=== PATIENT | female | born 1970 | race Caucasian/White ===

== ENCOUNTER 2025-05-23 09:34 | Outpatient (REF) | payer OTHER, SELFPAY ==
--- OUTSIDE RECORDS SUMMARY | 2025-05-23 08:45 | XMS_ITS | Encounter Summary ---
Author Organization [employer] Address [address] [facility] [address], [place] [address] Care Team Providers Care Rv Servicer Name Role Phone Sherman Crytsal MD Primary Care Prov ider Reason for Referral * Consultation (Routine) - Pending Review Specialty Diagnoses / Procedures Referred By Yuan hong Referred To Contact General Surgery Diagnoses Lipoma of torso Sherman Crystal MD [address] [place] [address] Phone: tel: fax: Referral ID Status Reason Start Date Expiration Date Visits Requested Visits Authorized [id number] Pending Review Specialty Services Required 05/23/2025 05/23/2026 1 1 Encounter Details Date Type Department Care Team (Late st Contact Info) Description 05/23/2025 8:45 AM EDT Office Visit [facility] [address] [place] [address] Sherman Crystal MD [address] [place] [address] Primary hypertension (Primary Dx); Lipoma of torso; Acute midline low back pain without sciatica Social History Tobacco Use Types Packs/Day Years Used Date Smoking Tobacco: Never Smokeless Tobacco: Never Alcohol Use Standard Drinks/Week Comments Yes 0 (1 standard drink = 0.6 oz pur e alcohol) social whiskey Depression Answer Date Recorded Patient Health Questionnaire-9 Score 0 11/02/2024 Patient Health Questionnaire-9 Score 0 11/02/2024 Last PHQ-9: Questionnaire Data Not on file 1 01/03/2024 Housing Stability Answer Date Recorded What is your housing situation today? I have beto jimenez 05/23/[address] you li ve. Do you have problems with any of the following? None of the above 05/23/2025 Food Insecurity Answer Date Recorded Within the past 12 months, y ou worried that your food would run out before you got money to buy more: Never True 05/23/2025 Within the past 12 months,th e food you bought just didn't last and you didn't have enough money to get more: Never True 07/2025 Transportation Answer Date Recorded In the past 12 months, has l ack of transportation kept you from medical appts, meetings, work or from getting things needed for daily living? No 05/23/2025 Utilities Answer Date Recorded In the past 12 months, has t he electric, gas, oil or water company threatened to shut off services in your home? No 05/23/2025 Depression Answer Date Recorded Patient Health Questionnaire-2 Score 0 11/02/2024 Internet Access Answer Date Recorded Internet Access Q1 Yes 05/23/2025 Internet Access Q2 Not on file 05/23/2025 Comments Unknown Sex and Gender Information Value Date Recorded Sex Assigned at Female 11/02/2024 9:34 AM EST Legal Sex Female 3:29 PM EST Gender Identity Female 11/02/2024 9:34 AM EST Sexual Orientation Don't know 11/02/2024 9: 34 AM EST documented as of this encounter Last Filed Vital Signs Vital Sign Reading Time Taken Comments Blood Pressure 144/98 05/23/2025 8:53 AM EDT Pulse 72 05/23/2025 8:53 AM EDT Temperature 36.8 C (98.3 F) 05/23/2025 8:53 AM EDT Respiratory Rate 16 05/23/2025 8:53 AM EDT Oxygen Saturation - - Inhaled Oxygen Concentration - - Weight 63.1 kg (139 lb 3.2 oz) 05/23/2025 8:53 A M EDT Height 150.5 cm (4' 11.25 ) 05/23/2025 8:53 AM E DT Body Mass Index 27.88 05/23/2025 8:53 AM EDT documented in this encounter Progress Notes * Sherman Campos MD - 05/23/2025 8:45 AM EDT Subjective Patient ID: Abi Mancuso is a 54 y.o. female who presents for No chief complaint on file.. Hypertension This is a chronic problem. The problem is uncontrolled. Pertinent negatives include no chest pain, headaches, palpitations, peripheral edema or shortness of breath. Review of Systems Respiratory: Negative for shortness of breath. Cardiovascular: Negative for chest pain and palpitations. Neurological: Negative for headaches. Objective Physical Exam Constitutional: Appearance: Normal appearance. Cardiovascular: Rate and Rhythm: Normal rate and regular rhythm. Heart sounds: No murmur heard. Pulmonary: Effort: Pulmonary effort is normal. No respiratory distress. Breath sounds: No stridor. No wheezing or rhonchi. Abdominal: General: Abdomen is flat. There is no distension. Palpations: There is no mass. Tenderness: There is no abdominal tenderness. Hernia: No hernia is present. Neurological: General: No focal deficit present. Mental Status: She is alert and oriented to person, place, and time. Psychiatric: Mood and Affect: Mood normal. Behavior: Behavior normal. Assessment/Plan Problem List Items Addressed This Visit Primary hypertension - Primary Not at target but she is not taking amlodipine 5mg, told to take both hydrochlorothiazide and amlodipine, will follow up in 1 month Relevant Medications amLODIPine (Norvasc) 5 MG tablet hydroCHLOROthiazide (HYDRODiuril) 25 MG tablet Other Relevant Orders CBC auto differential Comprehensive Metabolic Panel Lipid Panel, Standard Hemoglobin A1c TSH W/Reflex to FT4 HIV-1/2 Antigen and Antibodies, Fourth Generation, with Reflexes Hepatitis C Antibody with Reflex to HCV, RNA, Quantitative, Real-Time PCR Lipoma of torso Will refer to surgery for removal Relevant Orders Referral to General Surgery Acute midline low back pain without sciatica No trauma, no neurologic deficit, pain does not radiate, will start on ibuprofen, discussed home remedies, avoid heavy lifting, rest, call back if worsening Relevant Medications ibuprofen 800 MG tablet documented in this encounter Miscellaneous Notes * Assessment & Plan Note - Sherman Campos MD - 05/23/2025 9:15 AM EDTAssociated Problem(s): Acute midline low back pain without sciatica No trauma, no neurologic deficit, pain does not radiate, will start on ibuprofen, discussed home remedies, avoid heavy lifting, rest, call back if worsening * Assessment & Plan Note - Sherman Campos MD - 05/23/2025 9:11 AM EDTAssociated Problem(s): Lipoma of torso Will refer to surgery for removal * Assessment & Plan Note - Sherman Campos MD - 05/23/2025 9:10 AM EDTAssociated Problem(s): Primary hypertension Not at target but she is not taking amlodipine 5mg, told to take both hydrochlorothiazide and amlodipine, will follow up in 1 month documented in this encounter Plan of Treatment Upcoming Encounters Date Type Department Care Team (Late st Contact Info) Description 06/25/2025 3:15 PM EDT Telemedicine [facility] [address] [place] [address] Sherman Crystal MD [address] [place] [address] Scheduled Orders Name Type Priority Associated Diagnoses Orde r Schedule CBC auto differential Lab Routine Primary hypertension Expected: 05/23/2025 (Approximate), Expires: 05/23/2026 Comprehensive Metabolic Panel Lab Routine Primary hypertension Expected: 05/23/2025 (Approximate), Expires: 05/23/2026 Lipid Panel, Standard Lab Routine Primary hypertension Expected: 05/23/2025 (Approximate), Expires: 05/23/2026 Hemoglobin A1c Lab Routine Primary hypertension Expected: 05/23/2025 (Approximate), Expires: 05/23/2026 TSH W/Reflex to FT4 Lab Routine Primary hypertension Expected: 05/23/2025 (Approximate), Expires: 05/23/2026 HIV-1/2 Antigen and Antibodies, Fourth Generation, with Reflexes Lab Routine Primary hypertension Expected: 05/23/2025 (Approximate), Expires: 05/23/2026 Hepatitis C Antibody with Reflex to HCV, RNA, Quantitative, Real-Time PCR Lab Routine Primary hypertension Expected: 05/23/2025, Expires: 05/23/2026 Scheduled Referrals Name Type Priority Associated Diagnoses Orde r Schedule Referral to General Surgery Outpatient Referral Routine Lipoma of torso Expected: 05/23/2025 (Approximate), Expires: 05/23/2026 documented as of this encounter Visit Diagnoses Diagnosis Primary hypertension- Primary Unspecified essential hypertension Lipoma of torso Acute midline low back pain without sciatica documented in this encounter Additional Health Concerns Assessment Noted Time PHQ-9 Depression Total Score: 0 11/02/20 10:16 AM EST documented as of this encounter Care Teams Rv Servicer Relationship Specialty Start Date End Date Sherman Crystal MD [address] [place] [id number] PCP - General Internal Medicine 11/02/24 documented as of this encounter
--- OUTSIDE RECORDS SUMMARY | 2025-05-23 10:11 | XMS_ITS | Clinical Summary ---
Author Organization [facility] Address [address] [place] [phone] Phone Care Team Providers Care Industrial Psychology Professor Name Role Phone Physician, Pcp Unknown Primary Care Provider Mariel vailable Allergies No known active allergies Medications amLODIPine (NORVASC) 5 mg tablet Take 1 tablet (5 mg total) by mouth 1 (one) time each day. 15 tablet 10/21/2024 Active Active Problems No known active problems Social History Tobacco Use Types Packs/Day Years Used Date Smoking Tobacco: Never Smokeless Tobacco: Never Tobacco Cessation:Counseling Given: Not Answered Comments Unknown Sex and Gender Information Value Date Recorded Sex Assigned at Female 10/21/2024 9:16 PM EST Legal Sex Female 4:09 PM EST Gender Identity Female 10/21/2024 9:16 PM EST Sexual Orientation Straight 10/21/2024 9: 16 PM EST Obstetrics History Last Filed Vital Signs Vital Sign Reading Time Taken Comments Blood Pressure 139/83 10/21/2024 10:58 PM EST Pulse 75 10/21/2024 10:58 PM EST Temperature 37 C (98.6 F) 10/21/2024 8:09 PM EST Respiratory Rate 18 10/21/2024 10:58 PM EST Oxygen Saturation 99% 10/21/2024 10:22 PM EST Inhaled Oxygen Concentration - - Weight 62.1 kg (137 lb) 10/21/2024 4:26 PM EST Height 152.4 cm (5') 10/21/2024 4:26 PM EST Body Mass Index 26.76 10/21/2024 4:26 PM EST Plan of Treatment Health Maintenance Due Date Last Done Comments Breast Cancer Screening 1971 DTaP,Tdap,and Td Vaccines (1 - Tdap) 1990 Hepatitis B Vaccines (1 of 3 - 19+ 3-dose series) 1990 Cervical Cancer Screening: P ap Smear 1992 Pneumococcal Vaccine: 50+ Ye ars (1 of 1 - PCV) 2021 Zoster Vaccines (1 of 2) 2021 COVID-19 Vaccine (1 - 2023-2 5 season) 2024 Cholesterol Screening (Lipid Panel) 10/21/2024 Colorectal Cancer Screening: Colonoscopy 10/21/2024 Depression Screening 10/21/2024 HIV Screening 10/21/2024 Hepatitis C Screening 10/21/2024 Social Influencers of Health Screening 10/21/2024 Influenza Vaccine (#1) 2025 Hypertension/CHF/CAD Annual BMP Blood Test 10/21/2025 10/21/2024 HIB Vaccines Aged Out No longer eligi ble based on patient's age to complete this topic HPV Vaccines Aged Out No longer eligi ble based on patient's age to complete this topic Hepatitis A Vaccines Aged Out No long er eligible based on patient's age to complete this topic IPV Vaccines Aged Out No longer eligi ble based on patient's age to complete this topic MMR Vaccines Aged Out No longer eligi ble based on patient's age to complete this topic Meningococcal ACWY Vaccine Aged Out N o longer eligible based on patient's age to complete this topic Meningococcal B Vaccine Aged Out No l onger eligible based on patient's age to complete this topic RSV Immunization Patients Un liv 20 months Aged Out No longer eligible b ased on patient's age to complete this topic Varicella Vaccines Aged Out No longer eligible based on patient's age to complete this topic Procedures Procedure Name Priority Date/Time Associated Diagnosis Comments BASIC METABOLIC PANEL STAT 10/21/2024 4:53 PM EST from Last 3 Months or Most Recently Relevant to Health Maintenance Results * Basic metabolic panel (10/21/2024 4:53 PM EST) Sodium 139 133 - 145 mmol/L LAB CHEMISTRY METHOD 10/21/2024 5:38 PM EST [facility] Potassium 3.8 3.5 - 5.5 mmol/L LAB CHEMISTRY METHOD 10/21/2024 5:38 PM [facility] Chloride 108 96 - 110 mmol/L LAB CHEMISTRY METHOD 10/21/2024 5:38 PM [facility] CO2 27 21 - 32 mmol/L LAB CHEMISTRY METHOD 10/21/2024 5:38 PM [facility] Anion Gap 4 3 - 11 LAB CHEMISTRY METHOD 10/21/2024 5:38 PM [facility] Glucose 95 70 - 100 mg/dL LAB CHEMISTRY METHOD 10/21/2024 5:38 PM [facility] BUN 11 5 - 25 mg/dL LAB CHEMISTRY METHOD 10/21/2024 5:38 PM [facility] Creatinine 0.74 0.50 - 1.10 mg/dL LAB CHEMISTRY METHOD 10/21/2024 5:38 PM [facility] eGFR 97 >=60 mL/min/1. 73m2 LAB CHEMISTRY METHOD 10/21/2024 5:38 PM [facility] Comment:Calculation based on the Chronic Kidney Disease Epidemiology Collaboration (CKD-EPI) equation refit without adjustment for race. BUN/Creatinine Ratio 14.9 LAB CHEMISTRY METHOD 10/21/2024 5:38 PM [facility] Calcium 8.9 8.5 - 10.5 mg/dL LAB CHEMISTRY METHOD 10/21/2024 5:38 PM [facility] Blood Venous blood specimen / Unknown Venipuncture / Unknown 10/21/2024 4:53 PM EST 10/21/2024 5:00 PM EST us Laith Carr DO LAB BLOOD ORDERABLES Final Res ult [facility] [address] [place] [address], [place] [phone] from Last 3 Months or Most Recently Relevant to Health Maintenance Insurance [facility] [employer] Care Teams Industrial Psychology Professor Relationship Specialty Start Date End Date Physician, Pcp Unknown PCP - General 10/21/24
[2025-05-23 16:17] LABS: MANUAL DIFF FLAG NO
[2025-05-23 16:22] LABS: Hematocrit 39.2 % (37.0-47.0); Hemoglobin 12.1 g/dl (12.0-16.0); Imm Gran Abs Auto 0.01 X10*3/uL (0.00-0.03); Imm Gran Pct Auto 0.3 % (0.0-0.4); Lymphocytes Absolute Auto 1.7 X10*3/uL (1.2-4.9); Mean Corpuscular HGB Conc 30.9 g/dl (31.0-35.0); Mean Corpuscular Hemoglobin 25.5 pg (27.0-33.0); Mean Corpuscular Volume 82.5 fL (80.0-98.0); NRBC Abs Auto 0.000 X10*3/uL (0.0-0.012); NRBC Pct Auto 0.0 /100WBC (0.0-0.2); Platelet Count 302 X10*3/uL (160-400); Red Blood Count 4.75 X10*6/uL (4.20-5.50); White Blood Count 3.8 X10*3/uL (4.8-10.8)
[2025-05-23 16:41] LABS: Hemoglobin A1C 134.1478 umol/L; Total Hemoglobin (HGBA1C) 3207.9816 umol/L
[2025-05-23 16:46] LABS: Alanine Aminotransferase 16 U/L (0-31); Albumin Level 4.2 g/dL (3.5-5.0); Alkaline Phosphatase 53 U/L (39-117); Anion Gap 11 (12-20); Aspartate Amino Transferase 31 U/L (5-31); Blood Urea Nitrogen 17 mg/dL (9-16); Calcium 9.0 mg/dL (8.4-10.2); Carbon Dioxide 28 mmol/L (22-29); Chloride 104 mmol/L (96-108); Cholesterol 234 mg/dL (<200); Estimated Glomerular Filt Rate > 60; HDL Cholesterol 51 mg/dL (>40); Potassium 4.2 mmol/L (3.3-5.1); Sodium 139 mmol/L (135-145); Total Protein 7.0 g/dL (6.5-8.0); Triglycerides 114 mg/dL (<150)
[2025-05-24 06:35] LABS: HIV Num 1 0.05 S/CO (0.00-0.99); ~HepC Num1 0.20 S/CO (0.00-0.79); ~Hepatitis C Antibody Nonreactive (Nonreactive)
== END 2025-05-23 09:35 | disposition home or self-care (01) ==
LOC: HO.CHCLDS 09:34
PROVIDERS: Visit Provider Internal Medicine
DX: I10 Essential (primary) hypertension (principal); Z11.4 Encounter for screening for human immunodeficiency virus [HIV]; Z11.59 Encounter for screening for other viral diseases; Z13.1 Encounter for screening for diabetes mellitus
CPT/HCPCS: 36415; 80053; 80061; 83036; 84443; 85025; 86803; 87389

== ENCOUNTER 2025-07-10 10:49 | Outpatient (AMB) | payer OTHER, SELFPAY ==
[2025-07-10 11:05] VITALS: BP 138/91; PULSE 79; BMI 27.1
--- NOTE | 2025-07-10 11:05 | MHC.OFFVIS ---
Vital Signs 07/10/25 11:05 Height 5 ft Weight 139 lb BMI 27.1 BP 138/91 H Blood Pressure Location Rt brachial Position Sitting Pulse 79 Intake Visit Reasons: lipoma~ upper back Intake Note: Patient referred by pcp Dr. Luis Campos for evaluation of lipoma on Rt upper back. Present for 1yr. Patient c/o: growth has been enlarging, becoming bothersome. Medical Receptionist Medical Assistant Required: Yes Information Interpreted: clinical only (Elizabeth # [id number]) Accompanied by: Self / Same As Patient Allergies No Known Allergies Allergy (Verified 07/10/25 11:08) Medication List - Last Reconciled 07/10/25 by Diogo Springer MD No Known Home Meds HPI HPI lipoma~ upper back: Details: 54-year-old female referred for a lipoma of the back. She has had this lump on the upper back on the right side for over 2 years now. She says this has been increasing in size and has been bothering her with pain and discomfort. She wants this removed. She denies any skin changes. She denies any previous trauma to the area. [facility] Medical History (Updated 07/10/25 @ 11:22 by Diogo Springer MD) Lipoma of back HTN (hypertension) delivery affecting Family History Maternal Grandfather Prostate cancer Social History Alcohol intake: current Alcohol intake frequency: holidays/special occasions only Patient Tobacco Use Status: Never used Tobacco Review of Systems Const Denies chills and Denies fever(s) Card Denies chest pain, Denies dyspnea and Denies dyspnea on exertion Resp Denies cough, Denies dyspnea and Denies dyspnea on exertion GI Denies hematochezia and Denies change in bowel habits Denies hematuria Musc Denies back pain and Denies limited range of motion Neuro Denies focal weakness and Denies convulsions Psych Denies depression and Denies mood swings Physical Exam Const General: comfortable and no acute distress Orientation/consciousness: patient oriented x3 Neck Neck: Yes no lymphadenopathy Resp Auscultation: clear to auscultation bilaterally Cardio Rhythm: regular rhythm GI Palpation (GI): Soft to palpation, nontender and no guarding Back/Spine/Pelvis Other: Right upper back with note of a large lipomatous mass, about 7 cm in widest dimension, seems well-defined and mobile Neuro General: patient oriented x3 Assessment & Plan Assessment & Plan (1) Lipoma of back: Code(s): D17.1 - Benign lipomatous neoplasm of skin and subcutaneous tissue of trunk Category: Medical Plan She wants this large lipoma removed. I reviewed with the technique of excision. I explained the risks including but not limited to bleeding, infections and poor healing, as well as the benefits and alternatives. She wants this done under anesthesia in view of the large size. I described her what to expect postoperatively. She has given consent. She will therefore be scheduled for excision of the large lipoma under anesthesia in the operating room. Coding Level of Care Code New Pt Level 3 (02931) Diagnoses Lipoma of back D17.1
--- OUTSIDE RECORDS SUMMARY | 2025-07-10 11:40 | XMS_ITS | Clinical Summary ---
Author Organization [employer] Address [address] [facility] [address] [place] [address] Care Team Providers Care Sole Tacker Name Role Phone Sherman Crystal MD Primary Care Prov ider Allergies No known active allergies Medications Blood Pressure kit 1 kit Once per day. 1 kit 4 Active amLODIPine (Norvasc) 5 MG tablet Take 1 tablet (5 mg) by mouth Once per day. 30 tablet 11 5 05/23/20 26 Active hydroCHLOROthia zide (HYDRODiuril) 25 MG tablet Take 1 tablet (25 mg) by mouth Once per day. 30 tablet 11 5 05/23/20 26 Active ibuprofen 800 MG tablet TAKE 1 TABLET BY MOUTH 3 TIMES DAILY. 90 tablet 5 Active ibuprofen 800 MG tablet Take 1 tablet (800 mg) by mouth 3 times daily. 90 tablet 5 06/20/20 25 Discontinued Active Problems Problem Noted Date Diagnosed Date Lipoma of torso 05/23/2025 Assessment & Plan (05/23/2025 9:11 AM EDT): Will refer to surgery for removal Acute midline low back pain without sciatica 07/2025 Assessment & Plan (05/23/2025 9:15 AM EDT): No trauma, no neurologic deficit, pain does not radiate, will start on ibuprofen, discussed home remedies, avoid heavy lifting, rest, call back if worsening Encounter for medical examination to establish c are 11/02/2024 Assessment & Plan (11/02/2024 11:18 AM EST): No pcp follow up previously ER visit: 10/23/24 due to severe headaches, found with htn started on new treatment (amlodipine) Hospitalziation:- Pmhx: htn Pshx: c sec 200 All:- Med: amlodipine 5mg Works as CARDIOVASCULAR RN Screening for cervical cancer 11/02/2024 Assessment & Plan (11/02/2024 11:18 AM EST): Will schedule for a pap smear Encounter for screening mamm ogram for malignant neoplasm of breast 11/02/2024 Assessment & Plan (11/02/2024 11:22 AM EST): Will order mammogram for screening Screening for colon cancer 11/02/2024 Assessment & Plan (11/02/2024 11:23 AM EST): Will send cologuard, risk vs benefits discussed Primary hypertension 11/02/2024 Assessment & Plan (05/23/2025 9:10 AM EDT): Not at target but she is not taking amlodipine 5mg, told to take both hydrochlorothiazide and amlodipine, will follow up in 1 month Assessment & Plan (11/02/2024 11:24 AM EST): Not at target, will add hydrochlorothiazide 25mg, continue amlodipine 5mg, follow up on next visit in 1 month Encounters Date Type Department Care Team Description 06/25/2025 3:15 PM EDT Telemedicine [facility] [address] [place] [address] Sherman Crystal MD 06/25/2025 Travel 06/19/2025 Refill [facility] [address] [place] [address] Sherman Crystal MD 05/24/2025 Results Follow-Up [facility] [address] [place] [address] Sherman Crystal MD CBC auto differential, Comprehensive Metabolic Panel, Lipid Panel, Standard, Additional followed-up results: 4 05/23/2025 8:45 AM EDT Office Visit [facility] [address] [place] [address] Sherman Crystal MD Primary hypertension (Primary Dx); Lipoma of torso; Acute midline low back pain without sciatica 05/23/2025 Travel 05/15/2025 Patient Outreach [facility] [address] [place] [address] Sherman Crystal MD Pre-visit Planning (Pre visit planning unable to LVM ) from Last 3 Months Family History Medical History Relation Name Comments Hypertension Father Prostate cancer Maternal Grandfather Diabetes Mother Hypertension Mother Prostate cancer Mother's Brother Stomach cancer Mother's Sister Relation Name Status Comments Father Maternal Grandfather Mother Mother's Brother Mother's Sister Social History Tobacco Use Types Packs/Day Years Used Date Smoking Tobacco: Never Smokeless Tobacco: Never Tobacco Cessation:Counseling Given: Not Answered Alcohol Use Standard Drinks/Week Comments Yes 0 (1 standard drink = 0.6 oz pur e alcohol) social coreas Depression Answer Date Recorded Patient Health Questionnaire-9 [...] Don't know 11/02/2024 9: 34 AM EST Last Filed Vital Signs Vital Sign Reading Time Taken Comments Blood Pressure 99/64 06/25/2025 3:33 PM EDT Pulse 72 05/23/2025 8:53 AM EDT Temperature 36.8 C (98.3 F) 05/23/2025 8:53 AM EDT Respiratory Rate 16 05/23/2025 8:53 AM EDT Oxygen Saturation 98% 03/26/2025 3:16 PM EDT Inhaled Oxygen Concentration - - Weight 63.1 kg (139 lb 3.2 oz) 05/23/2025 8:53 A M EDT Height 150.5 cm (4' 11.25 ) 05/23/2025 8:53 AM E DT Body Mass Index 27.88 05/23/2025 8:53 AM EDT Plan of Treatment Upcoming Encounters Date Type Department Care Team (Late st Contact Info) Description 08/14/2025 2:45 PM EDT Telemedicine [facility] [address] [place] [address] Sherman Crystal MD [address] [place], [place] [phone] Health Maintenance Due Date Last Done Comments CT Colonography 1971 Colonoscopy 1971 FIT 1971 FOBT 1971 Sigmoidoscopy 1971 Disability Screening 1971 DTaP/Tdap/Td Vaccines (1 - Tdap) 1990 Hepatitis B Vaccines (1 of 3 - 19+ 3-dose series) 1990 Pap Smear 1992 Cervical Cancer Screening 2001 HPV/Cotest 2001 Pneumococcal Vaccine: 50+ Years (1 of 1 - PCV) 2021 Zoster Vaccines (1 of 2) 2021 COVID-19 Vaccine (1 - 2023-2 5 season) 2024 Influenza Vaccine (#1) 2025 Depression Screening 11/02/2025 11/02/2024, 11/02/2024 Tobacco Screening 11/02/2025 11/02/2024 Alcohol/Substance Use Screening 05/23/2026 05/23/2025 Diabetes: Hemoglobin A1C 05/23/2026 05/23/2025 SDOH Screening 05/23/2026 05/23/2025 Mammogram 06/02/2027 06/02/2025, 06/02/2025 Colorectal Cancer Screening 11/27/2027 FIT DNA/Cologuard 11/27/2027 11/27/2024 Lipid Panel 05/23/2030 05/23/2025 RSV Patients and Patients Aged 60 years or older (1 - 1-dose 75+ series) 2046 HIV Screening Completed 05/23/2025 Hepatitis C Screening Completed 05/23/2025 HIB Vaccines Aged Out No longer eligi [...] patient's age to complete this topic Meningococcal Vaccine Aged Out No laron devika eligible based on patient's age to complete this topic RSV under 20 months Aged Out No longe r eligible based on patient's age to complete this topic Rotavirus Vaccines Aged Out No longer eligible based on patient's age to complete this topic Procedures Procedure Name Priority Date/Time Associated Diagnosis Comments HEPATITIS C AB W/REFL TO HCV RNA, QN, PCR Routine 05/23/2025 9:41 AM EDT Primary hypertension HIV 1/2 ANTIGEN/ANTIBODY, FOURTH GENERATION W/RFL Routine 05/23/2025 9:41 AM EDT Primary hypertension TSH W/REFLEX TO FT4 Routine 05/23/2025 9 :41 AM EDT Primary hypertension HEMOGLOBIN A1C Routine 05/23/2025 9:41 AM EDT Primary hypertension LIPID PANEL, STANDARD Routine 05/23/2025 9:41 AM EDT Primary hypertension COMPREHENSIVE METABOLIC PANEL Routine 05/23/2025 9:41 AM EDT Primary hypertension CBC WITH AUTO DIFFERENTIAL Routine 05/23/2025 9:41 AM EDT Primary hypertension LAB COLOGUARD COLON CANCER SCREEN Routine 11/27/2024 9:48 AM EST Screening for colon cancer from Last 3 Months or Most Recently Relevant to Health Maintenance Results * TSH W/Reflex to FT4 (05/23/2025 9:41 AM EDT) TSH reflex Free T4 2.29 0.32 - 4.0 uIU/mL [facility] Blood Venous blood specimen / Unknown 05/23/2025 9:41 AM EDT 05/23/2025 4:03 PM EDT Sherman Campos MD LAB BLOOD ORDERABL ES Final Result [facility] [address] [place] [phone] * (ABNORMAL) CBC auto differential (05/23/2025 9:41 AM EDT) White Blood Count 3.8(L) 4.8 - 10.8 X10*3/uL [facility] Red Blood Count 4.75 4.20 - 5.50 X10*6/uL [facility] Hemoglobin 12.1 12.0 - 16.0 g/dl [facility] Hematocrit 39.2 37.0 - 47.0 % [facility] Mean Corpuscular Volume 82.5 80.0 - 98.0 fL [facility] Mean Corpuscular Hemoglobin 25.5(L) 27.0 - 33.0 pg [facility] Mean Corpuscular HGB Conc 30.9(L) 31.0 - 35.0 g/dl [facility] Red Cell Distribution Width 14.3 11.0 - 16.0 % [facility] Platelet Count 302 160 - 400 X10*3/uL [facility] Mean Platelet Volume 11.8 9.4 - 12.3 fL [facility] Neutrophils Percent Auto 42.5(L) 45 - 73 % [facility] Imm Gran Pct Auto 0.3 0.0 - 0.4 % [facility] Lymphocytes Percent Auto 43.9(H) 20 - 40 % [facility] Monocytes Percent Auto 9.8 2 - 11 % [facility] Eosinophils Percent Auto 2.4 0 - 4 % [facility] Basophils Percent Auto 1.1 0 - 2 % [facility] NRBC Pct Auto 0.0 0.0 - 0.2 /100WBC [facility] Neutrophils Absolute Auto 1.6(L) 2.0 - 8.3 x10*3/uL [facility] Imm Gran Abs Auto 0.01 0.00 - 0.03 X10*3/uL [facility] Lymphocytes Absolute Auto 1.7 1.2 - 4.9 X10*3/uL [facility] Monocytes Absolute Auto 0.4 0.1 - 1.2 X10*3/uL [facility] Eosinophils Absolute Auto 0.1 0.0 - 0.4 X10*3/uL [facility] Basophils Absolute Auto 0.0 0.0 - 0.2 X10*3/uL [facility] NRBC Abs Auto 0.000 0.0 - 0.012 X10*3/uL [facility] Blood Venous blood specimen / Unknown 05/23/2025 9:41 AM EDT 05/23/2025 4:03 PM EDT us Sherman Campos MD LAB BLOOD ORDERABL ES Final Result [facility] [address] [place] [phone] * Hepatitis C Antibody with Reflex to HCV, RNA, Quantitative, Real-Time PCR (05/23/2025 9:41 AM EDT) Hepatitis C Antibody Nonreactive Nonreactive [facility] Comment:Antibodies to HCV no t detected; does not exclude early acuteHCV infection. Blood Venous blood specimen / Unknown 05/23/2025 9:41 AM EDT 05/23/2025 4:03 PM EDT us Sherman Campos MD LAB BLOOD ORDERABL ES Final Result Performing Organization Address [facility] de Phone Number [facility] [address] [place] [phone] * HIV-1/2 Antigen and Antibodies, Fourth Generation, with Reflexes (05/23/2025 9:41 AM EDT) Pathologist [facility] HIV AB/AG Nonreactive Nonreactive [facility] Comment:HIV-1 p24 Ag and/or HIV-1/HIV-2 Ab not detected.A test result that is nonreactive does not exclude thepossibility of exposure to or infection with HIV-1 and/orHIV-2. Nonreactive results in this assay for individualswith prior exposure to HIV-1 and/or HIV-2 may be due toantigen and antibody levels that are below the limit ofdetection of this assay.The [employer] HIV Ag/Ab Combo assay result andsupplemental assay results should be interpreted inconjunction with the patient's clinical presentation,history and other laboratory results. If the results areinconsistent with clinical evidence, additional testing issuggested to confirm the result. Blood Venous blood specimen / Unknown 05/23/2025 9:41 AM EDT 05/23/2025 4:03 PM EDT us Sherman Campos MD LAB BLOOD ORDERABL ES Final Result Performing Organization Address [facility]/ZIP Co de Phone Number [facility] [address] [place] [phone] * Hemoglobin A1c (05/23/2025 9:41 AM EDT) Hemoglobin A1c 6.0 <6.0 % [facility] Comment:Hemoglobin A1C Refer ence Range Adults: 4.8 - 6.0 % Non diabetic: < 6.0 % Goal: < 7.0 %Additional Action Suggested: > 8.0 %Note: Hemoglobin A1c results are invalid for patients with abnormal amounts of HbF. Blood transfusions may impact the HbA1c concentration in the patient sample. Estimated Average Glucose 126 mg/dL [facility] Comment:eAG = Estimated ave rage glucose which is %A1C expressed asaverage glucose, using the formula of the A9S-IjeigymIravyxd Glucose study (ADAG), Diabetes Care, Vol.31,#8,Jun. 2007 Blood Venous blood specimen / Unknown 05/23/2025 9:41 AM EDT 05/23/2025 4:03 PM EDT Sherman Campos MD LAB BLOOD ORDERABL ES Final Result Performing Organization Address [facility] Co de Phone Number [facility] [address] [place] [phone] * (ABNORMAL) Lipid Panel, Standard (05/23/2025 9:41 AM EDT) Triglycerides 114 <150 mg/dL [facility] Comment:Desirable Triglyceri de: less than 150 mg/dLBorderline High Triglyceride 150-199 mg/dLHigh Triglyceride: 200-499 mg/dLVery High Triglyceride: greater than or equal to 5OO mg/dL Cholesterol 234(H) <200 mg/dL [facility] Comment:Desirable Cholestero l: less than 200 mg/dLBorderline High Cholesterol: 200-239 mg/dLHigh Cholesterol: greater than 239 mg/dL LDL Cholesterol Calculated 161(H) <100 mg/dL [facility] Comment:Desirable LDL: less than 100 mg/dLNear Optimal/Above Optimal LDL: 110- 129 mg/dLBorderline High LDL: 130-159 mg/dLHigh LDL: 160-189 mg/dLVery High LDL: greater than or equal to 190 mg/dL HDL Cholesterol 51 >40 mg/dL [facility] Comment:Desirable HDL: great er than 40 mg/dL Note: This HDL assay may give artificially low results in patients with liver disease. Blood Venous blood specimen / Unknown 05/23/2025 9:41 AM EDT 05/23/2025 4:03 PM EDT us Sherman Campos MD LAB BLOOD ORDERABL ES Final Result [facility] [address] [place] [phone] * (ABNORMAL) Comprehensive Metabolic Panel (05/23/2025 9:41 AM EDT) Sodium 139 135 - 145 mmol/L [facility] Potassium 4.2 3.3 - 5.1 mmol/L [facility] Chloride 104 96 - 108 mmol/L [facility] Carbon Dioxide 28 22 - 29 mmol/L [facility] Anion Gap 11(L) 12 - 20 [facility] Urea Nitrogen (BUN) 17(H) 9 - 16 mg/dL [facility] Creatinine, Serum 0.85 0.5 - 1.4 mg/dL [facility] Estimated Glomerular Filt Rate >60 [facility] Comment:Chronic Kidney Disea se: Estimated GFR < 60 mL/min/1.22h8Hxhwid Kidney Disease: Estimated GFR < 15 mL/min/1.73m2 Glucose 105 60 - 115 mg/dL [facility] Calcium 9.0 8.4 - 10.2 mg/dL [facility] Bilirubin, Total 0.2 0.0 - 1.0 mg/dL [facility] Aspartate Amino Transferase 31 5 - 31 U/L [facility] Alanine Aminotransferase 16 0 - 31 U/L [facility] Total Protein 7.0 6.5 - 8.0 g/dL [facility] Albumin Level 4.2 3.5 - 5.0 g/dL [facility] Alkaline Phosphatase 53 39 - 117 U/L [facility] Blood Venous blood specimen / Unknown 05/23/2025 9:41 AM EDT 05/23/2025 4:03 PM EDT Sherman Campos MD LAB BLOOD ORDERABL ES Final Result [facility] [address] [place] [phone] * Cologuard?? colon cancer screening (11/27/2024 9:48 AM EST) Pathologist [facility] Cologuard Result Negative Negative 12/04/19 5:23 PM EST [employer] (CLIA #:[id number]) Comment: NEGATIVE TEST RESULT. A negative Cologuard result indicates a low likelihood that a colorectal cancer (CRC) or advanced adenoma (adenomatous polyps with more advanced pre-malignant features) is present. The chance that a person with a negative Cologuard test has a colorectal cancer is less than 1 in 1500 (negative predictive value >99.9%) or has an advanced adenoma is less than 5.3% (negative predictive value 94.7%). These data are based on a prospective cross-sectional study of 10,000 individuals at average risk for colorectal cancer who were screened with both Cologuard and colonoscopy. (Derrick Bell et al, N Engl J Med 2014;370(14):2463-0803) The normal value (reference range) for this assay is negative. COLOGUARD RE-SCREENING RECOMMENDATION: Periodic colorectal cancer screening is an important part of preventive healthcare for asymptomatic individuals at average risk for colorectal cancer. Following a negative Cologuard result, the [place] Cancer Society and U.S. Multi-Society Task Force screening guidelines recommend a Cologuard re-screening interval of 3 years. References: [employer] Cancer Society Guideline for Colorectal Cancer Screening: https://www.cancer.org/cancer/zkuxz-yqpfpw-gkfuit/nvorjypiy-wzxddpeou-evninco/ac s-rec ommendations.html.; Julia Hiand CR, Jacob LeeK, Colorectal Cancer Screening: Recommendations for Physicians and Patients from the U.S. Multi-Society Task Force on Colorectal Cancer Screening , Am J Gastroenterology 2017; 112:8292-2729. TEST DESCRIPTION: Composite algorithmic analysis of stool DNA-biomarkers with hemoglobin immunoassay. Quantitative values of individual biomarkers are not reportable and are not associated with individual biomarker result reference ranges. Cologuard is intended for colorectal cancer screening of adults of either sex, 45 years or older, who are at average-risk for colorectal cancer (CRC). Cologuard has been approved for use by the U.S. FDA. The performance of Cologuard was established in a cross sectional study of average-risk adults aged 50-84. Cologuard performance in patients ages 45 to 49 years was estimated by sub-group analysis of near-age groups. Colonoscopies performed for a positive result may find as the most clinically significant lesion: colorectal cancer [4.0%], advanced adenoma (including sessile serrated polyps greater than or equal to 1cm diameter) [20%] or non- advanced adenoma [31%]; or no colorectal neoplasia [45%]. These estimates are derived from a prospective cross-sectional screening study of 10,000 individuals at average risk for colorectal cancer who were screened with both Cologuard and colonoscopy. (Derrick Bahena al, N Engl J Med 2014;370(14):9705-8186.) Cologuard may produce a false negative or false positive result (no colorectal cancer or precancerous polyp present at colonoscopy follow up). A negative Cologuard test result does not guarantee the absence of CRC or advanced adenoma (pre-cancer). The current Cologuard screening interval is every 3 years. ([employer] Cancer Society and U.S. Multi-Society Task Force). Cologuard performance data in a 10,000 patient pivotal study using colonoscopy as the reference method can be accessed at the following location: www.[employer]).L-3 G[employer]/results. Additional description of the Cologuard test process, warnings and precautions can be found at www.[employer].com. Stool specimen (specimen) 11/27/2024 9:48 AM EST 11/28/2024 11:01 AM EST Sherman Campos MD LAB MOLECULAR DIAG NOSTICS ORDERABLES Final Result [employer] [facility] (CLIA #:[id number]) [address] [place] [address], [place] [phone] from Last 3 Months or Most Recently Relevant to Health Maintenance Insurance [facility] Care Teams Sole Tacker Relationship Specialty Start Date End Date Sherman Crystal MD [address] [place], [place] [address] [address] PCP - General Internal Medicine 11/02/24
--- OUTSIDE RECORDS SUMMARY | 2025-07-10 11:40 | XMS_ITS | Encounter Summary ---
Author Organization [employer] Address [address] [facility] [address] [place] [address] Care Team Providers Care Residential Real Estate Sales Manager Name Role Phone Sherman Crystal MD Primary Care Prov ider Encounter Details Date Type Department Care Team (Latest Contact Info) Description 05/24/2025 Results Follow-Up [facility] [address] [place], [place] [phone] Sherman Crystal MD [address] [place] [address] CBC auto differential, Comprehensive Metabolic Panel, Lipid Panel, Standard, Additional followed-up results: 4 Social History Tobacco Use Types Packs/Day Years [...] AM EST documented as of this encounter Plan of Treatment Upcoming Encounters Date Type Department Care Team (Late st Contact Info) Description 08/14/2025 2:45 PM EDT Telemedicine [facility] [address] [place] [address] Sherman Crystal MD [address] [place] [address] documented as of this encounter Visit Diagnoses Not on filedocumented in this encounter Additional Health Concerns Assessment Noted Time PHQ-9 Depression Total Score: 0 11/02/20 10:16 AM EST documented as of this encounter Care Teams Residential Real Estate Sales Manager Relationship Specialty Start Date End Date Sherman Crystal MD [address] [place] [address] PCP - General Internal Medicine 11/02/24 documented as of this encounter
--- OUTSIDE RECORDS SUMMARY | 2025-07-10 11:40 | XMS_ITS | Clinical Summary ---
Author Organization [facility] Address [address] [place] [phone] Phone Care Team Providers Care Wind Energy Engineer Name Role Phone Sherman Crystal Primary Care Provide r Allergies No known active allergies Medications amLODIPine (NORVASC) 5 mg tablet Take 1 tablet (5 mg total) by mouth 1 (one) time each day. 15 tablet 10/21/2024 Active Active Problems No known active problems Encounters Date Type Department Care Team Description 06/02/2025 9:28 AM EDT - 06/02/2025 11:59 PM EDT [facility] [address] [phone] Encounter for screening mammogram for breast cancer Discharge Disposition: Home or Self Care 05/28/[address] [facility] - Main Lab [address] [facility] [place] [address] Darwin Espana MD Encounter for gynecological examination (general) (routine) without abnormal findings from Last 3 Months Family History Medical History Relation Name Comments Breast cancer Maternal Cousin Breast cancer Mother's Sister Relation Name Status Comments Maternal Cousin Other Mother's Sister Alive Social History Tobacco Use Types Packs/Day Years Used Date Smoking Tobacco: Never Smokeless Tobacco: Never Tobacco Cessation:Counseling Given: Not Answered Comments No Sex and Gender Information Value Date Recorded [...] - - Weight 62.1 kg (137 lb) 06/02/2025 9:46 AM EDT Height 152.4 cm (5') 06/02/2025 9:46 AM EDT Body Mass Index 26.76 06/02/2025 9:46 AM EDT Plan of Treatment Health Maintenance Due Date Last Done Comments DTaP,Tdap,and Td Vaccines (1 - Tdap) 1990 Hepatitis B Vaccines (1 of 3 - 19+ 3-dose series) 1990 Pneumococcal Vaccine: 50+ Years (1 of 1 - PCV) 2021 Zoster Vaccines (1 of 2) 2021 COVID-19 Vaccine (1 - 2023-2 5 season) 2024 Social Influencers of Health Screening 10/21/2024 Depression Screening 11/15/2024 Influenza Vaccine (#1) 2025 Hypertension/CHF/CAD Annual BMP Blood Test 05/23/2026 05/23/2025, 10/21/2024 Breast Cancer Screening 06/02/2027 06/02/2025 Colorectal Cancer Screening: FIT-DNA (Cologuard) 11/27/2027 11/27/2024 Cholesterol Screening (Lipid Panel) 05/23/2030 05/23/2025 Cervical Cancer Screening: HPV 05/25/2030 0 05/25/2025, 05/25/2025 HIV Screening Completed 05/23/2025 Hepatitis C Screening [...] to complete this topic RSV Immunization Patients Under 20 months Aged Out No longer eligible b ased on patient's age to complete this topic Varicella Vaccines Aged Out No longer eligible based on patient's age to complete this topic Procedures Procedure Name Priority Date/Time Associated Diagnosis Comments MG MAMMO DIGITAL SCREENING W JOHN BILAT Routine 06/02/2025 9:48 AM EDT Encounter for screening mammogram for breast cancer PAP SMEAR Routine 05/25/2025 12:00 AM EDT Encounter for gynecological examination (general) (routine) without abnormal findings HPV GENOTYPE Routine 05/25/2025 12:00 AM EDT Encounter for gynecological examination (general) (routine) without abnormal findings HPV WITH REFLEX GENOTYPE Routine 05/25/2025 12:00 AM EDT Encounter for gynecological examination (general) (routine) without abnormal findings BASIC METABOLIC PANEL STAT 10/21/2024 4:53 PM EST from Last 3 Months or Most Recently Relevant to Health Maintenance Results * MG Mammo Digital Screening w John bilat (06/02/2025 9:48 AM EDT) Anatomical Region Laterality Modality Breast Bilateral Mammography 06/04/2025 12:5 9 PM EDT Impressions 06/04/2025 1:01 PM EDT No evidence of breast malignancy. BI-RADS CATEGORY: 1 - NEGATIVE RECOMMENDATION: Screening bilateral mammogram is recommended in 1 year. Mammo Location: [facility], [address] [place] [address], [id number], . -------- FINAL REPORT -------- Dictated By: Abena Garcia Dictated Date: 06/04/2025 12:59 ET Assigned Physician: Abena Garcia Reviewed and Electronically Signed By: Abena Garcia Signed Date: 06/04/2025 13:01 ET Workstation ID: [id number] Transcribed By: Self Edit Transcribed Date: 06/04/2025 12:59 ET Narrative 06/04/2025 1:01 PM EDT CLINICAL: 54 years old, Female, routine annual exam. COMPARISON: No prior studies. TECHNIQUE: Bilateral MLO and CC views were obtained digitally with 3-D mammogram (digital breast tomosynthesis). Computer-aided detection was utilized in evaluation of this exam (CAD). FINDINGS: There is no evidence of suspicious mass or architectural distortion. No worrisome calcifications are evident. BREAST DENSITY: B - There are scattered areas of fibroglandular density. Procedure Note Abena Garcia MD - 06/04/2025 CLINICAL: 54 years old, Female, routine annual exam. COMPARISON: No prior studies. TECHNIQUE: Bilateral MLO and CC views were obtained digitally with 3-Dmammogram (digital breast tomosynthesis). Computer-aided detection wasutilized in evaluation of this exam (CAD). FINDINGS: There is no evidence of suspicious mass or architectural distortion. Noworrisome calcifications are evident. BREAST DENSITY: B - There are scattered areas of fibroglandular density. IMPRESSION: No evidence of breast malignancy. BI-RADS CATEGORY: 1 - NEGATIVE RECOMMENDATION: Screening bilateral mammogram is recommended in 1 year. Mammo Location: [facility], [address] [place] [address], [facility], . -------- FINAL REPORT -------- Dictated By: Abena Garcia Dictated Date: 06/04/2025 12:59 ET Assigned Physician: Abena Garcia Reviewed and Electronically Signed By: Abena Garcia Signed Date: 06/04/2025 13:01 ET Workstation ID: [id number] Transcribed By: Self Edit Transcribed Date: 06/04/2025 12:59 ET us Self Referral Sppl IMG BI PROCEDURES Final Resul t * HPV genotype (05/25/2025 12:00 AM EDT) HPV Type 16 Negative Negative LAB MICROBIOLOGY METHOD 05/29/2025 2:31 PM EDT [facility] HPV Type 18/45 Negative Negative LAB MICROBIOLOGY METHOD 05/29/2025 2:31 PM EDT [facility] HPV Type 16,18, and others Valid LAB MICROBIOLOGY METHOD 05/29/2025 2:31 PM EDT [facility] Brushing/Spatula Cervix uteri structure / Unknown 05/25/2025 05/28/2025 6:57 AM EDT us Darwin Espana MD LAB MOLECULAR DIAGNOSTICS RE[facility]OSTA Final Result [facility] [address] [place] [address], [place] [phone] * (ABNORMAL) HPV with reflex genotype (05/25/2025 12:00 AM EDT) HPV Positive( A) Negative LAB MICROBIOLOGY METHOD 05/28/2025 5:15 PM EDT [facility] Brushing/Spatula Cervix uteri structure / Unknown 05/25/2025 05/28/2025 6:57 AM EDT us Darwin Espana MD LAB MOLECULAR DIAGNOSTICS [facility] Final Result [facility] [address] [place] [address], [place] [phone] * Pap smear (05/25/2025 12:00 AM EDT) Interpretation Negative for intraepithelial lesion or malignancy 06/05/2025 8:15 AM EDT [facility] General Categorization Negative 06/05/2025 8:15 AM EDT [facility] Other Findings Shift in patti suggestive of bacterial vaginosis 06/05/2025 8:15 AM EDT [facility] LMP 04/16/2025 06/05/2025 8:15 AM EDT [facility] Specimen Adequacy Satisfactory for evaluation, endocervical/montalvo sformation zone component present 06/05/2025 8:15 AM EDT [facility] Pap Methodology Liquid Based Pap Test 06/05/2025 8:15 AM EDT [facility] Disclaimer The Pap test is a screening test which carries an inherent false negative rate. These test results should be correlated with the patient's clinical findings and history. This Pap test was processed using an automated screening system. Technical cytopathology services provided by [facility], at [address] [place] [id number] (CLIA # [id number]/Santos Banda MD, Automotive Technology Instructor.) 06/05/2025 8:15 AM EDT [facility] Console Pap Interpretation Reported 06/05/2025 8:15 AM [facility] Brushing/Spatula Cervix uteri structure / Unknown 05/25/2025 05/28/2025 6:57 AM EDT Darwin Espana MD LAB CYTOLOGY ORDERABLES Final Result [facility] [address] [place] [address], * Basic metabolic panel (10/21/2024 4:53 PM EST) Sodium 139 133 - 145 mmol/L LAB CHEMISTRY METHOD 10/21/2024 5:38 PM EST [facility] Potassium 3.8 3.5 - 5.5 mmol/L LAB CHEMISTRY METHOD 10/21/2024 5:38 PM EST [facility] Chloride 108 96 - 110 mmol/L LAB CHEMISTRY METHOD 10/21/2024 5:38 PM [facility] CO2 27 21 - 32 mmol/L LAB CHEMISTRY METHOD 10/21/2024 5:38 PM [facility] Anion Gap 4 3 - 11 LAB CHEMISTRY METHOD 10/21/2024 5:38 PM [facility] Glucose 95 70 - 100 mg/dL LAB CHEMISTRY METHOD 10/21/2024 5:38 PM [facility] BUN 11 5 - 25 mg/dL LAB CHEMISTRY METHOD 10/21/2024 5:38 PM [facility] Creatinine 0.74 0.50 - 1.10 mg/dL LAB CHEMISTRY METHOD 10/21/2024 5:38 PM [facility] eGFR 97 >=60 mL/min/1. 73m2 LAB CHEMISTRY METHOD 10/21/2024 5:38 PM [facility] Comment:Calculation based on the Chronic Kidney Disease Epidemiology Collaboration (CKD-EPI) equation refit without adjustment for race. BUN/Creatinine Ratio 14.9 LAB CHEMISTRY METHOD 10/21/2024 5:38 PM [facility] Calcium 8.9 8.5 - 10.5 mg/dL LAB CHEMISTRY METHOD 10/21/2024 5:38 PM [facility] Blood Venous blood specimen / Unknown Venipuncture / Unknown 10/21/2024 4:53 PM EST 10/21/2024 5:00 PM EST us Laith Carr DO LAB BLOOD ORDERABLES Final Res ult [facility] [address] [place] [address], [place] [phone] from Last 3 Months or Most Recently Relevant to Health Maintenance Insurance [facility] [employer] Care Teams Wind Energy Engineer Relationship Specialty Start Date End Date Sherman Crystal [address] [place] [phone] PCP - General Internal Medicine 05/25/25
--- OUTSIDE RECORDS SUMMARY | 2025-07-10 11:40 | XMS_ITS | Encounter Summary ---
Author Organization [facility] Address [address] [place] [phone] Care Team Providers Care Driller Brake Lining Name Role Phone Sherman Crystal Primary Care Provide r Encounter Details Date Type Department Care Team (Latest Contact Info) Description 05/28/2025 Lab Requisition [facility] - Main Lab [address] [place] [phone] Darwin Espana MD [address] [phone] Encounter for gynecological examination (general) (routine) without abnormal findings Social History Tobacco Use Types Packs/Day Years Used Date Smoking Tobacco: Never Smokeless Tobacco: Never Comments Unknown Sex and Gender Information Value Date Recorded Sex Assigned at Female 10/21/2024 9:16 PM EST Legal Sex Female 4:09 PM EST Gender Identity Female 10/21/2024 9:16 PM EST Sexual Orientation Straight 10/21/2024 9: 16 PM EST documented as of this encounter Plan of Treatment Not on file documented as of this encounter Procedures Procedure Name Priority Date/Time Associated Diagnosis Comments HPV GENOTYPE Routine 05/25/2025 12:00 AM EDT Encounter for gynecological examination (general) (routine) without abnormal findings HPV WITH REFLEX GENOTYPE Routine 05/25/2025 12:00 AM EDT Encounter for gynecological examination (general) (routine) without abnormal findings PAP SMEAR Routine 05/25/2025 12:00 AM EDT Encounter for gynecological examination (general) (routine) without abnormal findings documented in this encounter Results * HPV genotype (05/25/2025 12:00 AM EDT) HPV Type 16 Negative Negative LAB MICROBIOLOGY METHOD 05/29/2025 2:31 PM EDT [facility] HPV Type 18/45 Negative Negative LAB MICROBIOLOGY METHOD 05/29/2025 2:31 PM EDT [facility] HPV Type 16,18, and others Valid LAB MICROBIOLOGY METHOD 05/29/2025 2:31 PM EDT [facility] Brushing/Spatula Cervix uteri structure / Unknown 05/25/2025 05/28/2025 6:57 AM EDT us Darwin Espana MD LAB MOLECULAR DIAGNOSTICS [facility] Final Result [facility] [address] [place] [address], [place] [phone] * (ABNORMAL) HPV with reflex genotype (05/25/2025 12:00 AM EDT) HPV Positive( A) Negative LAB MICROBIOLOGY METHOD 05/28/2025 5:15 PM EDT [facility] Brushing/Spatula Cervix uteri structure / Unknown 05/25/2025 05/28/2025 6:57 AM EDT us Darwin Espana MD LAB MOLECULAR DIAGNOSTICS [facility] Final Result [facility] [address] [place] [address], [place] [phone] * Pap smear (05/25/2025 12:00 AM EDT) Interpretation Negative for intraepithelial lesion or malignancy 06/05/2025 8:15 AM EDT [facility] General Categorization Negative 06/05/2025 8:15 AM EDT [facility] Other Findings Shift in patti suggestive of bacterial vaginosis 06/05/2025 8:15 AM EDT [facility] LMP 04/16/2025 06/05/2025 8:15 AM EDT [facility] Specimen Adequacy Satisfactory for evaluation, endocervical/montalvo sformation zone component present 06/05/2025 8:15 AM EDT [facility] Pap Methodology Liquid Based Pap Test 06/05/2025 8:15 AM EDT [facility] Disclaimer The Pap test is a screening test which carries an inherent false negative rate. These test results should be correlated with the patient's clinical findings and history. This Pap test was processed using an automated screening system. Technical cytopathology services provided by [facility], at [address] [place] [address] (CLIA # [id number]/Santos Banda MD, Clarification Operator.) 06/05/2025 8:15 AM EDT [facility] Console Pap Interpretation Reported 06/05/2025 8:15 AM T [facility] Brushing/Spatula Cervix uteri structure / Unknown 05/25/2025 05/28/2025 6:57 AM EDT us Darwin Espana MD LAB CYTOLOGY ORDERABLES Final Result [facility]) [facility] [address] [place] [address], documented in this encounter Visit Diagnoses Diagnosis Encounter for gynecological examination (general) (routine) without abnormal findings documented in this encounter Care Teams Driller Brake Lining Relationship Specialty Start Date End Date Sherman Crystal [address] [place] [phone] PCP - General Internal Medicine 05/25/25 documented as of this encounter
--- OUTSIDE RECORDS SUMMARY | 2025-07-10 11:40 | XMS_ITS | Encounter Summary ---
Author Organization [employer] Address [address] [facility] [address], [place] [address] Care Team Providers Care Slasher Name Role Phone Sherman Crystal MD Primary Care Prov ider Reason for Visit * Reason Onset Date Comments New patient 10/18/2024 Encounter Details Date Type Department Care Team (Late Contact Info) Description 10/18/2024 Telephone [facility] MEDICINE [address] [place] [phone] Sherman Crystal MD [address] [place], [place] [phone] New patient Social History Tobacco Use Types Packs/Day Years Used Date Smoking Tobacco: Never Assessed Comments Unknown Sex and Gender Information Value Date Recorded Sex Assigned at Female 11/02/2024 9:34 AM EST Legal Sex Female 3:29 PM EST Gender Identity Female 11/02/2024 9:34 AM EST Sexual Orientation Don't know 11/02/2024 9: 34 AM EST documented as of this encounter Miscellaneous Notes * Telephone Encounter - Avani Martinez - 10/18/2024 3:42 PM EST TC placed to patient for scheduling of new patient visit. Agreed to ( date ) with ( provider name ) Medical Conditions: High blood pressure Last seen 1 year ago in [employer] reminder and release form sent via mail . documented in this encounter Plan of Treatment Upcoming Encounters Date Type Department Care Team (Late Contact Info) Description 08/14/2025 2:45 PM EDT Telemedicine [facility] MED & PEDS [address] [place] [address] Sherman Crystal MD [address] [place] [address] documented as of this encounter Visit Diagnoses Not on filedocumented in this encounter Care Teams Slasher Relationship Specialty Start Date End Date Sherman Crystal MD [address] [place] [address] PCP - General Internal Medicine 11/02/24 documented as of this encounter
--- OUTSIDE RECORDS SUMMARY | 2025-07-10 11:40 | XMS_ITS | Encounter Summary ---
Author Organization [employer] Address [address] [facility] [address] [place] [address] Care Team Providers Care Security Consultant Name Role Phone Sherman Crystal MD Primary Care Prov ider Reason for Visit * Reason Onset Date Comments Nurse Triage 03/26/2025 Encounter Details Date Type Department Care Team ([facility] st Contact Info) Description 03/26/[address] [facility] MEDICINE [address] [place] [address] Sherman Crystal MD [address] [place] [phone] Nurse Triage Social History Tobacco Use Types Packs/Day Years Used Date Smoking Tobacco: Never Smokeless Tobacco: Never Alcohol Use Standard Drinks/Week Comments Yes 0 (1 standard drink = 0.6 oz pur e alcohol) social coreas Depression Answer Date Recorded Patient Health Questionnaire-9 Score 0 11/02/2024 Patient Health Questionnaire-9 Score 0 11/02/2024 Last PHQ-9: Questionnaire Data Not on file 1 01/03/2024 Depression Answer Date Recorded Patient Health Questionnaire-2 Score 0 11/02/2024 Comments Unknown Sex and Gender Information Value Date Recorded Sex Assigned at Female 11/02/2024 9:34 AM EST Legal Sex Female 3:29 PM EST Gender Identity Female 11/02/2024 9:34 AM EST Sexual Orientation Don't know 11/02/2024 9: 34 AM EST documented as of this encounter Miscellaneous Notes * Telephone Encounter - Kimmy Tellez RN - 03/26/2025 11:47 AM EDT [place] [id number] Pt reports a tennis ball sized lump on right side behind breast area. Neg for pain, redness, remains skin color. It feels soft around edges and harder toward the middle. Neg for fever. ASK apt in [facility] today at 300pm. Pt agrees with disposition and insurance is verified as active prior to booking. Protocol Used: Skin Lump or Localized Swelling (Adult) Protocol-Based Disposition: See in Office or Video Visit within 3 Days Video visit not offered Positive Triage Question: * Small swelling or lump present > 1 week * All higher-acuity triage questions were negative Care Advice Discussed: * Reasons To Call Back - Fever occurs - Spreading redness occurs - Swelling becomes painful - Swelling lasts over 1 week - You become worse * Telephone Encounter - Kulwinder Elder - 03/26/2025 11:01 AM EDT Symptom: Skin Lump Outcome: Schedule an urgent appointment (within 4 hours) or talk to a nurse or provider soon Reason: Growing rapidly The caller accepted this outcome. documented in this encounter Plan of Treatment Upcoming Encounters Date Type Department Care Team (Late st Contact Info) Description 08/14/2025 2:45 PM EDT Telemedicine [facility] MED & PEDS [address] [place] [address] Sherman Crystal MD [address] [place] [address] documented as of this encounter Visit Diagnoses Not on filedocumented in this encounter Additional Health Concerns Assessment Noted Time PHQ-9 Depression Total Score: 0 11/02/20 10:16 AM EST documented as of this encounter Care Teams Security Consultant Relationship Specialty Start Date End Date Sherman Crystal MD [address] [place] [address] PCP - General Internal Medicine 11/02/24 documented as of this encounter
== END 2025-07-10 11:20 | disposition home or self-care (01) ==
PROVIDERS: PCP Internal Medicine; Referring Provider Internal Medicine; Visit Provider Surgery
DX: D17.1 Benign lipomatous neoplasm of skin and subcutaneous tissue of trunk (principal)
CPT/HCPCS: 99203

== ENCOUNTER → 2025-07-10 10:49 | Outpatient (BNVA) | payer OTHER, SELFPAY | PROVIDERS: PCP Internal Medicine; Referring Provider Internal Medicine; Visit Provider Surgery | DX: D17.1 Benign lipomatous neoplasm of skin and subcutaneous tissue of trunk (principal) | CPT/HCPCS: 99202 ==

== ENCOUNTER 2025-08-07 08:04 | Day surgery (SDC) | payer OTHER, SELFPAY ==
--- OUTSIDE RECORDS SUMMARY | 2025-07-20 14:48 | XMS_ITS | Clinical Summary ---
Author Organization [employer] Address [address] [facility] 7[address] [place] [address] Care Team Providers Care Shake Table Operator Name Role Phone Sherman Crystal MD Primary [...] MG tablet TAKE 1 TABLET BY MOUTH THREE TIMES A DAY 90 tablet 5 Active ibuprofen 800 MG tablet TAKE 1 TABLET BY MOUTH 3 TIMES DAILY. 90 tablet 5 07/18/20 25 Discontinued Active Problems Problem Noted Date [...] 200 All:- Med: amlodipine 5mg Works as LE[employer] Screening for cervical cancer 11/02/2024 Assessment & [...] discussed Primary hypertension 11/02/2024 Assessment & Plan (07/19/2025 12:39 PM EDT): Controlled, keep low sodium diet and exercise as tolerated, keep bp log, target <140/90 Assessment & Plan (05/23/2025 9:10 AM EDT): Not at target but she is not taking amlodipine 5mg, told to take both hydrochlorothiazide and amlodipine, will follow up in 1 month Assessment & Plan (11/02/2024 11:24 AM EST): Not at target, will add hydrochlorothiazide 25mg, continue amlodipine 5mg, follow up on next visit in 1 month Encounters Date Type Department Care Team Description 07/18/2025 Refill [facility] MED & PEDS [address] [place] [address] Sherman Crystal MD 06/25/2025 3:15 PM EDT Telemedicine [facility]EDS [address] [place] [address] Sherman Crystal MD Primary hypertension (Primary Dx) 06/25/2025 Travel 06/19/2025 Refill [facility]S [address] [place] [address] Sherman Crystal MD 05/24/2025 Results Follow-Up [facility] MED & PEDS [address] [place] [address] Sherman Crystal MD CBC auto differential, Comprehensive Metabolic Panel, Lipid Panel, Standard, Additional followed-up results: 4 05/23/2025 8:45 AM EDT Office Visit [facility] MED & PEDS [address] [place] [address] Sherman Crystal MD Primary hypertension (Primary Dx); Lipoma of torso; Acute midline low back pain without sciatica 05/23/2025 Travel 05/15/2025 Patient Outreach [facility] MEDICINE [address] [place] [address] Sherman Crystal MD Pre-visit Planning (Pre visit [...] is your housing situation today? I have betojackelyn jimenez 05/23/[address] you [...] Info) Description 08/14/2025 2:45 PM EDT Telemedicine [facility] MED [facility] PEDS [address] [place] [address] Sherman Crystal MD [address] [place] [address] Health Maintenance Due Date Last Done Comments CT Colonography 1971 Colonoscopy 1971 FIT 1971 Sigmoidoscopy 1971 Disability Screening 1971 DTaP/Tdap/Td Vaccines (1 - Tdap) 1990 Hepatitis B Vaccines (1 of 3 - 19+ 3-dose series) 1990 Pap Smear 1992 Cervical Cancer Screening 2001 HPV/Cotest 2001 Pneumococcal Vaccine: 50+ Years (1 of 1 - PCV) 2021 Zoster Vaccines (1 of 2) 2021 COVID-19 Vaccine (1 - 2023-2 5 season) 2025 Influenza Vaccine (#1) 2025 Depression Screening 11/02/2025 11/02/2024, 11/02/2024 Tobacco Screening 11/02/2025 11/02/2024 FOBT 11/27/2025 11/27/2024 Alcohol/Substance Use Screening 05/23/2026 05/23/2025 Diabetes: Hemoglobin [...] Free T4 2.29 0.32 - 4.0 uIU/mL [facility] Blood Venous blood specimen / Unknown 05/23/2025 9:41 AM EDT 05/23/2025 4:03 PM EDT us Sherman Campos MD LAB BLOOD ORDERABL ES Final Result [facility] [address] [place] [phone] * (ABNORMAL) CBC auto differential (05/23/2025 9:41 AM EDT) White Blood Count 3.8(L) 4.8 - 10.8 X10*3/uL [facility] Red Blood Count 4.75 4.20 - 5.50 X10*6/uL [facility] Hemoglobin 12.1 12.0 - 16.0 g/dl [facility] Hematocrit 39.2 37.0 - 47.0 % [facility] Mean Corpuscular Volume 82.5 80.0 - 98.0 fL [facility] Mean Corpuscular Hemoglobin 25.5(L) 27.0 - 33.0 pg [facility] Mean Corpuscular HGB Conc 30.9(L) 31.0 - 35.0 g/dl [facility] Red Cell Distribution Width 14.3 11.0 - 16.0 % [facility] Platelet Count 302 160 - 400 X10*3/uL [facility] Mean Platelet Volume 11.8 9.4 - 12.3 fL [facility] Neutrophils Percent Auto 42.5(L) 45 - 73 % [facility] Imm Gran Pct Auto 0.3 0.0 - 0.4 % [facility] Lymphocytes Percent Auto 43.9(H) 20 - 40 % [facility] Monocytes Percent Auto 9.8 2 - 11 % [facility] Eosinophils Percent Auto 2.4 0 - 4 % [facility] Basophils Percent Auto 1.1 0 - 2 % [facility] NRBC Pct Auto 0.0 0.0 - 0.2 /100WBC [facility] Neutrophils Absolute Auto 1.6(L) 2.0 - 8.3 x10*3/uL [facility] Imm Gran Abs Auto 0.01 0.00 - 0.03 X10*3/uL [facility] Lymphocytes Absolute Auto 1.7 1.2 - 4.9 X10*3/uL [facility] Monocytes Absolute Auto 0.4 0.1 - 1.2 X10*3/uL [facility] Eosinophils Absolute Auto 0.1 0.0 - 0.4 X10*3/uL [facility] Basophils Absolute Auto 0.0 0.0 - 0.2 X10*3/uL [facility] NRBC Abs Auto 0.000 0.0 - 0.012 X10*3/uL [facility] Blood Venous blood specimen / Unknown 05/23/2025 9:41 AM EDT 05/23/2025 4:03 PM EDT us Sherman Campos MD LAB BLOOD ORDERABL ES Final Result Performing Organization Address City/[facility]/ZIP Co de Phone Number [facility] [address] [place] [phone] * Hepatitis C Antibody with Reflex to HCV, RNA, Quantitative, Real-Time PCR (05/23/2025 9:41 AM EDT) Hepatitis C Antibody Nonreactive Nonreactive [facility] Comment:Antibodies to HCV no t detected; does not exclude early acuteHCV infection. Blood Venous blood specimen / Unknown 05/23/2025 9:41 AM EDT 05/23/2025 4:03 PM EDT us Sherman Campos MD LAB BLOOD ORDERABL ES Final Result Performing Organization Address [facility]/ZIP Co de Phone Number [facility] [address] [place] [phone] * HIV-1/2 Antigen and Antibodies, Fourth Generation, with Reflexes (05/23/2025 9:41 AM EDT) HIV AB/AG Nonreactive Nonreactive [facility] Comment:HIV-1 p24 Ag and/or HIV-1/HIV-2 Ab not detected.A test result that is nonreactive does not exclude thepossibility of exposure to or infection with HIV-1 and/orHIV-2. Nonreactive results in this assay for individualswith prior exposure to HIV-1 and/or HIV-2 may be due toantigen and antibody levels that are below the limit ofdetection of this assay.The Dahu HIV Ag/Ab Combo assay result andsupplemental assay results should be interpreted inconjunction with the patient's clinical presentation,history and other laboratory results. If the results areinconsistent with clinical evidence, additional testing issuggested to confirm the result. Blood Venous blood specimen / Unknown 05/23/2025 9:41 AM EDT 05/23/2025 4:03 PM EDT Sherman Campos MD LAB BLOOD ORDERABL ES Final Result Performing Organization Address [facility] Co de Phone Number [facility] [address] [place] [phone] * Hemoglobin A1c (05/23/2025 9:41 AM EDT) Hemoglobin A1c 6.0 <6.0 % [facility] Comment:Hemoglobin A1C Refer ence Range Adults: 4.8 - 6.0 % Non diabetic: < 6.0 % Goal: < 7.0 %Additional Action Suggested: > 8.0 %Note: Hemoglobin A1c results are invalid for patients with abnormal amounts of HbF. Blood transfusions may impact the HbA1c concentration in the patient sample. Estimated Average Glucose 126 mg/dL [facility] Comment:eAG = Estimated ave rage glucose which is %A1C expressed asaverage glucose, using the formula of the T0B-FulwolcHoecfhw Glucose study (ADAG), Diabetes Care, Vol.31,#8,Jun. 2007 Blood Venous blood specimen / Unknown 05/23/2025 9:41 AM EDT 05/23/2025 4:03 PM EDT Sherman Campos MD LAB BLOOD ORDERABL ES Final Result Performing Organization Address City/[facility]/ZIP Co de Phone Number [facility] [address] [place] [phone] * (ABNORMAL) Lipid Panel, Standard (05/23/2025 9:41 AM EDT) Triglycerides 114 <150 mg/dL [facility] Comment:Desirable Triglyceri de: less than 150 mg/dLBorderline High Triglyceride 150-199 mg/dLHigh Triglyceride: 200-499 mg/dLVery High Triglyceride: greater than or equal to 5OO mg/dL Cholesterol 234(H) <200 mg/dL [facility] Comment:Desirable Cholestero l: less than 200 mg/dLBorderline High Cholesterol: 200-239 mg/dLHigh Cholesterol: greater than 239 mg/dL LDL Cholesterol Calculated 161(H) <100 mg/dL [facility] Comment:Desirable LDL: less than 100 mg/dLNear Optimal/Above Optimal LDL: 110- 129 mg/dLBorderline High LDL: 130-159 mg/dLHigh LDL: 160-189 mg/dLVery High LDL: greater than or equal to 190 mg/dL HDL Cholesterol 51 >40 mg/dL [facility] Comment:Desirable HDL: great er than 40 mg/dL Note: This HDL assay may give artificially low results in patients with liver disease. Blood Venous blood specimen / Unknown 05/23/2025 9:41 AM EDT 05/23/2025 4:03 PM EDT Sherman Campos MD LAB BLOOD ORDERABL ES Final Result [facility] [address] [place], [place] [phone] * (ABNORMAL) Comprehensive Metabolic Panel (05/23/2025 9:41 AM EDT) Sodium 139 135 - 145 mmol/L [facility] Potassium 4.2 3.3 - 5.1 mmol/L [facility] Chloride 104 96 - 108 mmol/L [facility] Carbon Dioxide 28 22 - 29 mmol/L [facility] Anion Gap 11(L) 12 - 20 [facility] Urea Nitrogen (BUN) 17(H) 9 - 16 mg/dL [facility] Creatinine, Serum 0.85 0.5 - 1.4 mg/dL [facility] Estimated Glomerular Filt Rate >60 [facility] Comment:Chronic Kidney Disea se: Estimated GFR < 60 mL/min/1.25x2Gcoaeu Kidney Disease: Estimated GFR < 15 mL/min/1.73m2 Glucose 105 60 - 115 mg/dL [facility] Calcium 9.0 8.4 - 10.2 mg/dL [facility] Bilirubin, Total 0.2 0.0 - 1.0 mg/dL [facility] Aspartate Amino Transferase 31 5 - 31 U/L [facility] Alanine Aminotransferase 16 0 - 31 U/L [facility] Total Protein 7.0 6.5 - 8.0 g/dL [facility] Albumin Level 4.2 3.5 - 5.0 g/dL [facility] Alkaline Phosphatase 53 39 - 117 U/L [facility] Blood Venous blood specimen / Unknown 05/23/2025 9:41 AM EDT 05/23/2025 4:03 PM EDT Sherman Campos MD LAB BLOOD ORDERABL ES Final Result [facility] [address] [place] [phone] * Cologuard?? colon cancer screening (11/27/2024 9:48 AM EST) Cologuard Result Negative Negative 12/04/19 5:23 PM EST [facility] (CLIA #:[id number]) Comment: NEGATIVE TEST RESULT. A negative Cologuard [...] (Derrick Bahena al, N Engl J Med 2014;370(14):7900-0199) The normal value (reference range) for this assay is negative. COLOGUARD RE-SCREENING RECOMMENDATION: Periodic colorectal cancer screening is an important part of preventive healthcare for asymptomatic individuals at average risk for colorectal cancer. Following a negative Cologuard result, the [place] [employer] and U.S. Multi-Society Task Force screening guidelines recommend a Cologuard re-screening interval of 3 years. References: [place] [employer] Guideline for Colorectal Cancer Screening: https://www.cancer.org/cancer/otspz-uqceve-ecigah/avezhiwhf-ogwvcmccm-cfwoisw/ac s-rec ommendations.html.; Petros DK, Arnold GARCIA, Jacob LeeK, Colorectal Cancer Screening: Recommendations for Physicians and Patients from the U.S. Multi-Society Task Force on Colorectal Cancer Screening , Am J Gastroenterology 2017; 112:9510-9213. TEST DESCRIPTION: Composite algorithmic analysis of stool [...] were screened with both Cologuard and colonoscopy. (eDrrick Bell et al, N Engl J Med 2014;370(14):2741-2520.) Cologuard may produce a false negative or false positive result (no colorectal cancer or precancerous polyp present at colonoscopy follow up). A negative Cologuard test result does not guarantee the absence of CRC or advanced adenoma (pre-cancer). The current Cologuard screening interval is every 3 years. ([place] [employer] and U.S. Multi-Society Task Force). Cologuard performance data in a 10,000 patient pivotal study using colonoscopy as the reference method can be accessed at the following location: www.angelMD.Cardeeo/results. Additional description of the Cologuard test process, warnings and precautions can be found at www.cologuard.com. Stool specimen (specimen) 11/27/2024 9:48 AM EST 11/28/2024 11:01 AM EST us Sherman Campos MD LAB MOLECULAR DIAG NOSTICS ORDERABLES Final Result [facility] (CLIA #:[id number]) [place] [address] [address], from Last 3 Months or Most Recently Relevant to Health Maintenance Insurance [facility] Care Teams Shake Table Operator Relationship Specialty Start Date End Date Sherman Crystal MD [address] [place] [phone] PCP - General Internal Medicine 11/02/24
--- OUTSIDE RECORDS SUMMARY | 2025-07-20 14:48 | XMS_ITS | Clinical Summary ---
Author Organization [facility] Address [address] [place] [phone] Phone Care Team Providers Care Inspector Boiler Name Role Phone Sherman Crystal Primary Care [...] EDT Hospital Encounter [facility] at [address] [phone] Encounter for screening mammogram for breast cancer Discharge Disposition: Home or Self Care 05/28/2025 Lab Requisition [facility] - Main Lab [address] [facility] [place] [phone] Darwin Espana MD Encounter for [...] 2021 Zoster Vaccines (1 of 2) 2021 Social Influencers of Health Screening 10/21/2024 Depression Screening 11/15/2024 COVID-19 Vaccine (1 - 2023-2 5 season) 2025 Influenza Vaccine (#1) 2025 Hypertension/CHF/CAD Annual BMP [...] year. Mammo Location: [facility], [address] [place] [address], [phone], . -------- FINAL REPORT -------- Dictated By: Abena Garcia Dictated Date: 06/04/2025 12:59 ET Assigned Physician: Abena Garcia Reviewed and Electronically Signed By: Abena Garcia Signed Date: 06/04/2025 13:01 ET Workstation ID: [id number] Transcribed By: Self Edit Transcribed Date: 06/04/2025 [...] year. Mammo Location: [facility], [address] [place] [address], [facility], . -------- FINAL REPORT -------- Dictated By: Abena Garcia Dictated Date: 06/04/2025 12:59 ET Assigned Physician: Abena Garcia Reviewed and Electronically Signed By: Abena Garcia Signed Date: 06/04/2025 13:01 ET Workstation ID: [id number] Transcribed By: Self Edit Transcribed Date: 06/04/2025 12:59 ET us Self Referral Sppl IMG BI PROCEDURES Final Resul t * HPV genotype (05/25/2025 12:00 AM EDT) HPV Type 16 Negative Negative LAB MICROBIOLOGY METHOD 05/29/2025 2:31 PM EDT [facility] HPV Type 18/45 Negative Negative LAB MICROBIOLOGY METHOD 05/29/2025 2:31 PM EDT [facility] HPV Type 16,18, and others Valid LAB MICROBIOLOGY METHOD 05/29/2025 2:31 PM EDT [facility] Brushing/Spatula Cervix uteri structure / Unknown 05/25/2025 05/28/2025 6:57 AM EDT us Darwin Espana MD LAB MOLECULAR DIAGNOSTICS [place] Final Result [facility] [address] [place] [address], [place] [phone] * (ABNORMAL) HPV with reflex genotype (05/25/2025 12:00 AM EDT) HPV Positive( A) Negative LAB MICROBIOLOGY METHOD 05/28/2025 5:15 PM EDT [facility] Brushing/Spatula Cervix uteri structure / Unknown 05/25/2025 05/28/2025 6:57 AM EDT us Darwin Espana MD LAB MOLECULAR DIAGNOSTICS [place] [place] Final Result [facility] [address] [place] [address], [place] [phone] * Pap smear (05/25/2025 12:00 AM EDT) Interpretation Negative for intraepithelial lesion or malignancy 06/05/2025 8:15 AM EDT [facility] General Categorization Negative 06/05/2025 8:15 AM EDT [facility] Other Findings Shift in patti suggestive of bacterial vaginosis 06/05/2025 8:15 AM EDT [facility] LMP 04/16/2025 06/05/2025 8:15 AM EDT [facility] Specimen Adequacy Satisfactory for evaluation, endocervical/montalvo sformation zone component present 06/05/2025 8:15 AM EDT [facility] Pap Methodology Liquid Based Pap Test 06/05/2025 8:15 AM EDT [facility] Disclaimer The Pap test is a screening test which carries an inherent false negative rate. These test results should be correlated with the patient's clinical findings and history. This Pap test was processed using an automated screening system. Technical cytopathology services provided by [facility], at [address] [place] [phone] (CLIA # [id number]/Santos Banda MD, Monitoring Coordinator.) 06/05/2025 8:15 AM EDT [facility] Console Pap Interpretation Reported 06/05/2025 8:15 AM [facility] Brushing/Spatula Cervix uteri structure / Unknown 05/25/2025 05/28/2025 6:57 AM EDT Darwin Espana MD LAB CYTOLOGY ORDERABLES Final Result [facility] [address] [place] [address], * Basic metabolic panel (10/21/2024 4:53 PM EST) Sodium 139 133 - 145 mmol/L LAB CHEMISTRY METHOD 10/21/2024 5:38 PM EST [facility] Potassium 3.8 3.5 - 5.5 mmol/L LAB CHEMISTRY METHOD 10/21/2024 5:38 PM EST [facility] Chloride 108 96 - 110 mmol/L LAB CHEMISTRY METHOD 10/21/2024 5:38 PM [facility] CO2 27 21 - 32 mmol/L LAB CHEMISTRY METHOD 10/21/2024 5:38 PM [facility] Anion Gap 4 3 - 11 LAB CHEMISTRY METHOD 10/21/2024 5:38 PM [facility] Glucose 95 70 - 100 mg/dL LAB CHEMISTRY METHOD 10/21/2024 5:38 PM [facility] BUN 11 5 - 25 mg/dL LAB CHEMISTRY METHOD 10/21/2024 5:38 PM [facility] Creatinine 0.74 0.50 - 1.10 mg/dL LAB CHEMISTRY METHOD 10/21/2024 5:38 PM [facility] eGFR 97 >=60 mL/min/1. 73m2 LAB CHEMISTRY METHOD 10/21/2024 5:38 PM [facility] Comment:Calculation based on the Chronic Kidney Disease Epidemiology Collaboration (CKD-EPI) equation refit without adjustment for race. BUN/Creatinine Ratio 14.9 LAB CHEMISTRY METHOD 10/21/2024 5:38 PM [facility] Calcium 8.9 8.5 - 10.5 mg/dL LAB CHEMISTRY METHOD 10/21/2024 5:38 PM [facility] Blood Venous blood specimen / Unknown Venipuncture / Unknown 10/21/2024 4:53 PM EST 10/21/2024 5:00 PM EST us Laith Carr DO LAB BLOOD ORDERABLES Final Res ult [facility] [address] [place] [address], [place] [phone] from Last 3 Months or Most Recently Relevant to Health Maintenance Insurance [facility] [employer] Care Teams Inspector Boiler Relationship Specialty Start Date End Date Sherman Crystal [address] [place] [phone] PCP - General Internal Medicine 05/25/25
--- OUTSIDE RECORDS SUMMARY | 2025-07-20 14:48 | XMS_ITS | Encounter Summary ---
Author Organization [employer] Address [address] [facility] [address] [place] [address] Care Team Providers Care Financial Services Rep Name Role Phone Sherman Crystal MD Primary Care Prov ider Reason for Visit * Reason Onset Date Comments Nurse Triage 03/26/2025 Encounter Details Date Type Department Care Team ([facility] st Contact Info) Description 03/26/2025 Telephone [facility] MEDICINE [address] [place] [phone] Sherman Crystal MD [address] [place] [phone] Nurse Triage Social History Tobacco Use Types [...] 11:47 AM EDT [place] [id number] Pt reports a tennis ball sized lump [...] Info) Description 08/14/2025 2:45 PM EDT Telemedicine [facility] MED & PEDS [address] [place] [address] Sherman Crystal MD [address] [place] [address] documented as of this encounter Visit Diagnoses Not on filedocumented in this encounter Additional Health Concerns Assessment Noted Time PHQ-9 Depression Total Score: 0 11/02/20 10:16 AM EST documented as of this encounter Care Teams Financial Services Rep Relationship Specialty Start Date End Date Sherman Crystal MD [address] [place] [address] PCP - General Internal Medicine 11/02/24 documented as of this encounter
--- OUTSIDE RECORDS SUMMARY | 2025-07-20 14:48 | XMS_ITS | Encounter Summary ---
Author Organization [employer] Address [address] [facility] 7 [place] [address] Care Team Providers Care Platemaker Name Role Phone Sherman Crystal MD Primary Care Prov ider Reason for Visit * Reason Comments Med Refill Encounter Details Date Type Department Care Team ([facility] st Contact Info) Description 07/18/2025 Refill [facility] MED & PEDS [address] [place], [place] [phone] Sherman Crystal MD [address] [place] [address] Social History Tobacco Use Types Packs/Day Years [...] Info) Description 08/14/2025 2:45 PM EDT Telemedicine [facility] MED & PEDS [address] [place] [address] Sherman Crystal MD [address] [place] [address] documented as of this encounter Visit Diagnoses Not on filedocumented in this encounter Additional Health Concerns Assessment Noted Time PHQ-9 Depression Total Score: 0 11/02/20 24 10:16 AM EST documented as of this encounter Care Teams Platemaker Relationship Specialty Start Date End Date Sherman Crystal MD [address] [place] [address] PCP - General Internal Medicine 11/02/24 documented as of this encounter
--- OUTSIDE RECORDS SUMMARY | 2025-07-20 14:48 | XMS_ITS | Encounter Summary ---
Author Organization [employer] Address [address] [facility] [address] [address] Care Team Providers Care Director Private Name Role Phone Sherman Crystal MD Primary Care Prov ider Reason for Visit * Reason Onset Date Comments New patient 10/18/2024 Encounter Details Date Type Department Care Team (Late Contact Info) Description 10/18/2024 Telephone [facility] MEDICINE [address] [place] [phone] Sherman Crystal MD [address] [place], [place] [phone] New patient Social History Tobacco Use Types [...] pressure Last seen 1 year ago in [place] [employer] reminder and release form sent via mail . documented in this encounter Plan of Treatment Upcoming Encounters Date Type Department Care Team (Late Contact Info) Description 08/14/2025 2:45 PM EDT Telemedicine [facility]C MED & PEDS [address] [place] [address] Sherman Crystal MD [address] [place] [address] documented as of this encounter Visit Diagnoses Not on filedocumented in this encounter Care Teams Director Private Relationship Specialty Start Date End Date Sherman Crystal MD [address] [place] [address] PCP - General Internal Medicine 11/02/24 documented as of this encounter
--- OUTSIDE RECORDS SUMMARY | 2025-07-20 14:48 | XMS_ITS | Encounter Summary ---
Author Organization [facility] Address [address] [place] [phone] Care Team Providers Care Refractory Furnace Designer Name Role Phone Sherman Crystal Primary Care Provide r Encounter Details Date Type Department Care Team (Latest Contact Info) Description 05/28/2025 Lab Requisition [facility] - Main Lab [address] [place] [phone] Darwin Espana MD [address] [phone] Encounter for gynecological examination (general) (routine) without [...] Final Result [facility] [address] [place] [address], [place] [phone] * (ABNORMAL) HPV with reflex genotype (05/25/2025 12:00 AM EDT) HPV Positive( A) Negative LAB MICROBIOLOGY METHOD 05/28/2025 5:15 PM EDT [facility] Brushing/Spatula Cervix uteri structure / Unknown 05/25/2025 05/28/2025 6:57 AM EDT us Darwin Espana MD LAB MOLECULAR DIAGNOSTICS REYES DACOSTA Final Result [facility] [address] [place] [address], [place] [phone] * Pap smear (05/25/2025 12:00 AM EDT) [...] screening system. Technical cytopathology services provided by [facility], at [address] [place] [address] (CLIA # [id number]/Santos Banda MD, Chlorination Operator.) 06/05/2025 8:15 AM EDT [facility] Console Pap Interpretation Reported 06/05/2025 8:15 AM T [facility] Brushing/Spatula Cervix uteri structure / Unknown 05/25/2025 05/28/2025 6:57 AM EDT us Darwin Espana MD LAB CYTOLOGY ORDERABLES Final Result [facility]) [facility] [address] [place] [address], documented in this encounter Visit Diagnoses Diagnosis Encounter for gynecological examination (general) (routine) without abnormal findings documented in this encounter Care Teams Refractory Furnace Designer Relationship Specialty Start Date End Date Sherman Crystal [address] [place] [phone] PCP - General Internal Medicine 05/25/25 documented as of this encounter
--- OUTSIDE RECORDS SUMMARY | 2025-07-20 14:49 | XMS_ITS | Encounter Summary ---
Author Organization [employer] Address [address] [facility] [address] [place] [address] Care Team Providers Care Laborer Concrete Plant Name Role Phone Sherman Crystal MD Primary Care Prov ider Encounter Details Date Type Department Care Team (Latest Contact Info) Description 05/24/2025 Results Follow-Up [facility] [address] [place], [place] [phone] Sherman Crystal MD [address] [place] [address] CBC auto differential, Comprehensive Metabolic Panel, Lipid [...] 08/14/2025 2:45 PM EDT Telemedicine [facility] [address] [place] [phone] Sherman Crystal MD [address] [place] [address] documented as of this encounter Visit Diagnoses Not on filedocumented in this encounter Additional Health Concerns Assessment Noted Time PHQ-9 Depression Total Score: 0 11/02/20 10:16 AM EST documented as of this encounter Care Teams Laborer Concrete Plant Relationship Specialty Start Date End Date Sherman Crystal MD [address] [place] [address] PCP - General Internal Medicine 11/02/24 documented as of this encounter
[2025-08-03 12:12] VITALS: BMI 27.1
[2025-08-07 08:26] VITALS: BP 125/84; PULSE 86; RESP 18; TEMP 36.7; O2SAT 99
[2025-08-07 08:46] LABS: UPreg QC Valid YES
[2025-08-07] MEDS: Lactated Ringers 1,000 ML 100 ML IVCONT (08:47)
--- NOTE | 2025-08-07 09:52 | MHC.SHP ---
Pre-Procedural Eval Section A - 24 Hr Update-Section A only Date of Service: 08/07/25 The patient is an INPATIENT: No The patient has been examined within 24 hours of the surgical procedure. The History & Physical has been completed within 30 days and I have reviewed it.: No Section B - Complete if H&P > 30 days Chief Complaint: Benign lipomatous neoplasm of skin Allergies: Allergies Allergy/AdvReac Type Severity Reaction Status Date / Time No Known Allergies Allergy Verified 08/07/25 08:35 Plan I have reviewed the history and physical and performed a pertinent physical examination on my patient. No changes have occurred unless specified. Time Spent With Patient Time: Total time managing care of this patient today ____ minutes.
--- NOTE | 2025-08-07 10:15 | HO.ANESPROP2 ---
Documented by User: Kira Oneal NP 08/03/25 14:26 HPI - Anesthesia Eval Consult details Narrative: 54 yr old female for Excision of a Large Lipoma on Upper Back, right PMFSH Active Problems Active Problems: All Active Problems (Updated 08/03/25 @ 12:12 by Perla Viveros RN) Lipoma of back (Acute) Past Medical History Medical History Lipoma of back HTN (hypertension) Family History Family History Maternal Grandfather Prostate cancer Surgical History Surgical History Hx of section Social History Social History Household Members Other:: daughter Are you a primary lawn care specialist to a significant other at home: No Do you presently have visiting nurse or other home services: No Alcohol intake: current Alcohol intake frequency: holidays/special occasions only Patient Tobacco Use Status: Never used Tobacco Have you been hit, kicked, punched, or otherwise hurt by someone within the past year? If so, by whom?: No Are you DNR?: No Advance Directives: No Advance Directives Information Provided: Yes FDP: january 2025 Poor oral hygiene: Yes Meds Allergies Allergy/AdvReac Type Severity Reaction Status Date / Time No Known Allergies Allergy Verified 08/07/25 08:35 Home Medications ?Medication ?Instructions ?Recorded ?Confirmed ?Last Taken ?Type amlodipine 5 mg tablet (Norvasc) 5 mg PO DAILY 07/19/25 08/03/25 08/07/25 History hydrochlorothiazide 25 mg tablet 25 mg PO DAILY 07/19/25 08/03/25 Unknown History Exam Height,Weight and Vital Signs: Height 5 ft Weight 63.049 kg Documented by User: Yesenia Christian DO 08/07/25 10:38 PMFSH Past Medical History Medical History Lipoma of back HTN (hypertension) Family History Family History Maternal Grandfather Prostate cancer Family history of problems with anesthesia: No Surgical History Surgical History Hx of section History of Problems with Anesthesia: No Social History Social History Household Members Other:: daughter Are you a primary lawn care specialist to a significant other at home: No Do you presently have visiting nurse or other home services: No Alcohol intake: current Alcohol intake frequency: holidays/special occasions only Patient Tobacco Use Status: Never used Tobacco Have you been hit, kicked, punched, or otherwise hurt by someone within the past year? If so, by whom?: No Are you DNR?: No Advance Directives: No Advance Directives Information Provided: Yes [facility] Poor oral hygiene: Yes Meds Allergies Allergy/AdvReac Type Severity Reaction Status Date / Time No Known Allergies Allergy Verified 08/07/25 08:35 Home Medications ?Medication ?Instructions ?Recorded ?Confirmed ?Last Taken ?Type amlodipine 5 mg tablet (Norvasc) 5 mg PO DAILY 07/19/25 08/03/25 08/07/25 History hydrochlorothiazide 25 mg tablet 25 mg PO DAILY 07/19/25 08/03/25 Unknown History Exam Exam Date and Time: 08/07/25 1035 Height,Weight and Vital Signs: Height 5 ft Weight 63.049 kg Vital Signs Temperature 98.1 F 08/07/25 08:26 Pulse Rate 86 08/07/25 08:26 Respiratory Rate 18 08/07/25 08:26 Blood Pressure 125/84 08/07/25 08:26 Pulse Oximetry 99 08/07/25 08:26 Oxygen Delivery Method Room Air 08/07/25 08:26 Temperature 98.1 F 08/07/25 08:26 Pulse Rate 86 08/07/25 08:26 Respiratory Rate 18 08/07/25 08:26 Blood Pressure 125/84 08/07/25 08:26 Pulse Oximetry 99 08/07/25 08:26 Oxygen Delivery Method Room Air 08/07/25 08:26 Airway Mallampati Class: II TM Dist: >3cm Neck ROM: Full Loose/Missing/Broken Teeth: Yes (chipped #25) Heart: S1S2 Lungs: CTAB Assessment and Plan Assessment Anesthesia Assessment: Anesthesia Plan Discussed and Chart Reviewed Final Anesthetic Review Family History of Problems with Anesthesia: No History of Problems with Anesthesia: No NPO: Yes ASA Class: II Final Preanesthetic Review: No Changes in Pt Med Stat, Meds/Allgs Chart Reviewed, Consent Obtained/Reviewed (bilingual interpreter ar bedside for translation) and Anes Risks/Benef Reviewed Patient Risk: Low Procedure Risk: Low Anesthetic Plan Anesthetic Plan: MAC: and Agree w/ Assess. and Plan Disposition: Standard PACU
--- NOTE | 2025-08-07 10:45 | W.PM.OPN ---
Operative Note Operative Note Date of Service: 08/07/25 Narrative: Preop diagnosis: Large lipoma, upper back Postop diagnosis: The same Procedure: Excision of large lipoma from the upper back under anesthesia Surgeon: Diogo Springer MD Field Associate: FERCHO Tate The patient is a 54 year old female with a large lipoma on the upper back. She understood the technique of excision under anesthesia and was aware of the risks, benefits, and alternatives. She was brought to the operating room placed in sloppy left lateral decubitus position under monitored anesthesia care. The area of the lipoma was prepped and draped. Lidocaine 1% was used for local anesthesia. I made a transverse incision in the skin overlying the lipoma with a blade 15. This was carried down through the full-thickness of the skin and thick subcutaneous fat with electrocautery until the lipoma was visualized. The lipoma sharply dissected off of the rest of the subcutaneous layer with electrocautery and this was delivered and sent as a specimen. The lipoma measured 9 by 7 by 2.5 cm. We irrigated. We ensured hemostasis with the electrocautery. The deep subcutaneous tissue was reapposed with Polysorb 3-0 simple interrupted sutures. Skin closure was achieved with Polysorb 4-0 subcuticular running stitch The area was infiltrated with Marcaine 0.5% for postop analgesia. Dressings were applied. The procedure was completed The patient tolerated procedure well. There were no immediate complications. Initial final counts of sponges and instruments were correct. Estimated blood loss was less than 25 cc. The patient was then awakened and transferred to the recovery room with stable vital signs
[2025-08-07 10:57] VITALS: BP 103/65; PULSE 81; RESP 16; TEMP 36.1; O2SAT 95
[2025-08-07 11:12] VITALS: BP 120/86; PULSE 82; RESP 16; TEMP 36.3; O2SAT 98
== END 2025-08-07 12:45 | disposition home or self-care (01) ==
PROVIDERS: Anesthesiology; PCP Internal Medicine; Visit Provider Surgery
PROC: (CPT 21931; principal; 2025-08-07 10:50)
DX: D17.1 Benign lipomatous neoplasm of skin and subcutaneous tissue of trunk (principal); M54.89 Other dorsalgia; I10 Essential (primary) hypertension; Z79.899 Other long term (current) drug therapy
CPT/HCPCS: 21931; 81025; 88304; J0690; J2003; J2250; J2704; J2795; J3010

== ENCOUNTER → 2025-08-07 08:04 | Outpatient (BNV) | payer OTHER, SELFPAY | PROVIDERS: PCP Internal Medicine; Visit Provider Surgery | DX: D17.1 Benign lipomatous neoplasm of skin and subcutaneous tissue of trunk (principal) | CPT/HCPCS: 21931 ==

== ENCOUNTER 2025-08-20 15:27 | Outpatient (AMB) | payer OTHER, SELFPAY ==
--- NOTE | 2025-08-20 15:28 | A.OFFVIS_ITS ---
Intake Visit Reasons: S/P exc. Lg lipoma Rt upper back Intake Note: This patient presents for post-op follow-up assessment status post Excision of large lipoma from the upper back under anesthesia. (08/07/2025) Pt c/o; no complaints. Quality Internship Required: No Accompanied by: Family/Other Allergies No Known Allergies Allergy (Verified 08/20/25 15:33) HPI HPI S/P exc. Lg lipoma Rt upper back: Details: She underwent excision of a large lipoma from the right upper back last 08/07/2025. She tolerated procedure well. She says she is doing well and denies complaints currently. [facility] Medical History Lipoma of back HTN (hypertension) Surgical History S/P excision of lipoma (~08/07/25) Hx of section Family History Maternal Grandfather Prostate cancer Social History Household Members Other:: daughter Are you a primary patient care manager to a significant other at home: No Do you presently have visiting nurse or other home services: No Alcohol intake: current Alcohol intake frequency: holidays/special occasions only Patient Tobacco Use Status: Never used Tobacco Review of Systems Const Denies chills and Denies fever(s) Physical Exam Const General: comfortable and no acute distress Back/Spine/Pelvis Other: Excision site on the right back area is well healed, not infected Assessment & Plan Assessment & Plan (1) Lipoma of back: Code(s): D17.1 - Benign lipomatous neoplasm of skin and subcutaneous tissue of trunk Category: Medical Plan: Status post excision. The incision is well healed. There is no evidence of any infection. Her path report shows a lipoma. She can follow up on a p.r.n. basis Coding Level of Care Code Global (87990) Diagnoses Lipoma of back D17.1
--- OUTSIDE RECORDS SUMMARY | 2025-08-20 17:52 | XMS_ITS | Clinical Summary ---
Author Organization [facility] Address [address] [place] [phone] Phone Care Team Providers Care Shingles Roofer Name Role Phone Sherman Crystal Primary Care [...] EDT Hospital Encounter [facility] at [address] [phone] Encounter for screening mammogram for breast cancer Discharge Disposition: Home or Self Care 05/28/2025 Lab Requisition [facility] - Main Lab [address] [facility] [place] [phone] Darwin Espana MD Encounter for [...] Screening 10/21/2024 Depression Screening 11/15/2024 COVID-19 Vaccine ( - 2023-2 5 season) 2025 Influenza Vaccine (#1) 2025 Hypertension/CHF/CAD Annual BMP Blood Test 05/23/2026 05/23/2025, 10/21/2024 Breast Cancer Screening 06/02/2027 06/02/2025 Colorectal Cancer Screening: FIT-DNA (Cologuard) 11/27/2027 11/27/2024 Cholesterol Screening (Lipid Panel) 05/23/2030 05/23/2025 Cervical Cancer Screening: HPV 05/25/2030 0 05/25/2025, 05/25/2025 RSV Immunization Adult Patients (1 - 1-dose 75+ series) 2046 HIV [...] year. Mammo Location: [facility] at [facility], [address] [place] [address], [phone], . -------- FINAL REPORT -------- Dictated By: Abena Garcia Dictated Date: 06/04/2025 12:59 ET Assigned Physician: Abena Garcia Reviewed and Electronically Signed By: Abena Garcia Signed Date: 06/04/2025 13:01 ET Workstation ID: [id number] Transcribed By: Self Edit Transcribed Date: 06/04/2025 [...] year. Mammo Location: [facility], [address] [place] [address], [phone], . -------- FINAL REPORT -------- Dictated By: Abena Garcia Dictated Date: 06/04/2025 12:59 ET Assigned Physician: Abena Garcia Reviewed and Electronically Signed By: Abena Garcia Signed Date: 06/04/2025 13:01 ET Workstation ID: [id number] Transcribed By: Self Edit Transcribed Date: 06/04/2025 12:59 ET us Self Referral Sppl IMG BI PROCEDURES Final Resul t * HPV genotype (05/25/2025 12:00 AM EDT) HPV Type 16 Negative Negative LAB MICROBIOLOGY METHOD 05/29/2025 2:31 PM EDT [facility] HPV Type 18/45 Negative Negative LAB MICROBIOLOGY METHOD 05/29/2025 2:31 PM EDT [facility] HPV Type 16,18, and others Valid LAB MICROBIOLOGY METHOD 05/29/2025 2:31 PM EDT [facility] Brushing/Spatula Cervix uteri structure / Unknown 05/25/2025 05/28/2025 6:57 AM EDT us Darwin Espana MD LAB MOLECULAR DIAGNOSTICS REYES DACOSTA Final Result [facility] [address] [place] [address], [place] [phone] * (ABNORMAL) HPV with reflex genotype (05/25/2025 12:00 AM EDT) HPV Positive( A) Negative LAB MICROBIOLOGY METHOD 05/28/2025 5:15 PM EDT [facility] Brushing/Spatula Cervix uteri structure / Unknown 05/25/2025 05/28/2025 6:57 AM EDT us Darwin Espana MD LAB MOLECULAR DIAGNOSTICS REYES DACOSTA Final Result [facility] [address] [place] [address], [place] [phone] * Pap smear (05/25/2025 12:00 AM EDT) Interpretation Negative for intraepithelial lesion or malignancy 06/05/2025 8:15 AM EDT [facility] General Categorization Negative 06/05/2025 8:15 AM EDT [facility] Other Findings Shift in patti suggestive of bacterial vaginosis 06/05/2025 8:15 AM EDT [facility] LMP 04/16/2025 06/05/2025 8:15 AM EDT [facility] Specimen Adequacy Satisfactory for evaluation, endocervical/montalvo sformation zone component present 06/05/2025 8:15 AM EDT [facility] Pap Methodology Liquid Based Pap Test 06/05/2025 8:15 AM EDT [facility] Disclaimer The Pap test is a screening test which carries an inherent false negative rate. These test results should be correlated with the patient's clinical findings and history. This Pap test was processed using an automated screening system. Technical cytopathology services provided by [facility], at [address] [place] [address] (CLIA # [id number]/Santos Banda MD, Boat Puller.) 06/05/2025 8:15 AM EDT [facility] Console Pap Interpretation Reported 06/05/2025 8:15 AM [facility] Brushing/Spatula Cervix uteri structure / Unknown 05/25/2025 05/28/2025 6:57 AM EDT Darwin Espana MD LAB CYTOLOGY ORDERABLES Final Result [facility] [address] [place] [address], * Basic metabolic panel (10/21/2024 4:53 PM EST) Sodium 139 133 - 145 mmol/L LAB CHEMISTRY METHOD 10/21/2024 5:38 PM EST [facility] Potassium 3.8 3.5 - 5.5 mmol/L LAB CHEMISTRY METHOD 10/21/2024 5:38 PM EST [facility] Chloride 108 96 - 110 mmol/L LAB CHEMISTRY METHOD 10/21/2024 5:38 PM [facility] CO2 27 21 - 32 mmol/L LAB CHEMISTRY METHOD 10/21/2024 5:38 PM [facility] Anion Gap 4 3 - 11 LAB CHEMISTRY METHOD 10/21/2024 5:38 PM [facility] Glucose 95 70 - 100 mg/dL LAB CHEMISTRY METHOD 10/21/2024 5:38 PM [facility] BUN 11 5 - 25 mg/dL LAB CHEMISTRY METHOD 10/21/2024 5:38 PM [facility] Creatinine 0.74 0.50 - 1.10 mg/dL LAB CHEMISTRY METHOD 10/21/2024 5:38 PM [facility] eGFR 97 >=60 mL/min/1. 73m2 LAB CHEMISTRY METHOD 10/21/2024 5:38 PM [facility] Comment:Calculation based on the Chronic Kidney Disease Epidemiology Collaboration (CKD-EPI) equation refit without adjustment for race. BUN/Creatinine Ratio 14.9 LAB CHEMISTRY METHOD 10/21/2024 5:38 PM [facility] Calcium 8.9 8.5 - 10.5 mg/dL LAB CHEMISTRY METHOD 10/21/2024 5:38 PM [facility] Blood Venous blood specimen / Unknown Venipuncture / Unknown 10/21/2024 4:53 PM EST 10/21/2024 5:00 PM EST us Laith Carr DO LAB BLOOD ORDERABLES Final Res ult [facility] [address] [place] [address], [place] [phone] from Last 3 Months or Most Recently Relevant to Health Maintenance Insurance [facility] [employer] Care Teams Shingles Roofer Relationship Specialty Start Date End Date Sherman Crystal [address] [place] [phone] PCP - General Internal Medicine 05/25/25
--- OUTSIDE RECORDS SUMMARY | 2025-08-20 17:52 | XMS_ITS | Encounter Summary ---
Author Organization [facility] Address [address] [place] [phone] Care Team Providers Care Director Of Operations Support Name Role Phone Sherman Crystal Primary Care Provide r Encounter Details Date Type Department Care Team (Latest Contact Info) Description 05/28/2025 Lab Requisition [facility] - Main Lab [address] [place] [phone] Darwin Espana MD [address] [phone] Encounter for gynecological examination (general) (routine) without [...] Final Result [facility] [address] [place] [address], [place] [phone] * (ABNORMAL) HPV with reflex genotype (05/25/2025 12:00 AM EDT) HPV Positive( A) Negative LAB MICROBIOLOGY METHOD 05/28/2025 5:15 PM EDT [facility] Brushing/Spatula Cervix uteri structure / Unknown 05/25/2025 05/28/2025 6:57 AM EDT us Darwin Espana MD LAB MOLECULAR DIAGNOSTICS REYES DACOSTA Final Result [facility] [address] [place] [address], [place] [phone] * Pap smear (05/25/2025 12:00 AM EDT) [...] screening system. Technical cytopathology services provided by [facility], at [address] [place] [address] (CLIA # [id number]/Santos Banda MD, Split And Drum Room Supervisor.) 06/05/2025 8:15 AM EDT [facility] Console Pap Interpretation Reported 06/05/2025 8:15 AM T [facility] Brushing/Spatula Cervix uteri structure / Unknown 05/25/2025 05/28/2025 6:57 AM EDT us Darwin Espana MD LAB CYTOLOGY ORDERABLES Final Result [facility] [address] [place] [address], documented in this encounter Visit Diagnoses Diagnosis Encounter for gynecological examination (general) (routine) without abnormal findings documented in this encounter Care Teams Director Of Operations Support Relationship Specialty Start Date End Date Sherman Crystal [address] [place] [phone] PCP - General Internal Medicine 05/25/25 documented as of this encounter
--- OUTSIDE RECORDS SUMMARY | 2025-08-20 17:52 | XMS_ITS | Clinical Summary ---
Author Organization [employer] Address [address] [facility] [address] [place] [address] Care Team Providers Care Aboriginal Education Teacher Name Role Phone Sherman Crystal MD Primary Care Prov ider Allergies No known active allergies Medications Blood Pressure kit 1 kit Once per day. 1 kit 11/02/2024 Active amLODIPine (Norvasc) 5 MG tablet Take 1 tablet (5 mg) by mouth Once per day. 30 tablet 11 05/23/2025 6 Active hydroCHLOROthiaz solomon (HYDRODiuril) 25 MG tablet Take 1 tablet (25 mg) by mouth Once per day. 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 11/02/2024 Assessment & [...] Encounters Date Type Department Care Team Description 08/14/2025 Telephone [facility] [address] [place] [address] Sherman Crystal MD No Show 08/14/2025 Telephone [facility] [address] [place] [address] Sherman Crystal MD 08/14/2025 Travel 08/13/2025 Telephone [facility] [address] [place] [address] Sherman Crystal MD 08/07/2025 Orders Only GENERIC EXTERNAL DATA DEPARTMENT Provider, Generic External Data 07/18/2025 Refill [facility] [address] [place] [address] Sherman Crystal MD 06/25/2025 3:15 PM EDT Telemedicine [facility] [address] [place] [address] Sherman Crystal MD Primary hypertension (Primary Dx) 06/25/2025 Travel 06/19/2025 Refill [facility] [address] [place] [address] Sherman Crystal MD 05/24/2025 Results Follow-Up [facility] [address] [place] [address] Sherman Crystal MD CBC auto differential, Comprehensive Metabolic Panel, Lipid Panel, Standard, Additional followed-up results: 4 05/23/2025 8:45 AM EDT Office Visit [facility] [address] [place] [address] Sherman Crystal MD Primary hypertension (Primary Dx); Lipoma of torso; Acute midline low back pain without sciatica 05/23/2025 Travel from Last 3 Months Family History Medical [...] 05/23/2025 8:53 AM EDT Plan of Treatment Health Maintenance [...] Vaccines (1 of 2) 2021 COVID-19 Vaccine ( - 2023-2 5 season) [...] Procedure Name Priority Date/Time Associated Diagnosis Comments GROSS AND MICROSCOPIC LEVEL 3 Routine 08/07/2025 10:50 AM EDT HCG, QL, URINE Routine 08/07/2025 8:30 AM EDT HEPATITIS C AB W/REFL TO HCV RNA, [...] Recently Relevant to Health Maintenance Results * Gross and Microscopic Level 3 (08/07/2025 10:50 AM EDT) 08/07/2025 10:5 0 AM EDT 08/07/2025 11:07 AM EDT [facility] - 08/09/2025 3:35 PM EDT ----- ------- Name: Abi Jorgensen Age/Sex: 54/F : 1970 Unit#: [id number] Attend Dr: Diogo Springer MD Re08/07/25 Status: [facility] Location: [facility] Disch: ----- ------- SPEC : [id number] RECD: 08/07/25-1106 STATUS: HARLAN ALCAZAR NUM: [id number] SANTIAGO: 08/07/25-[address]: Diogo Springer MD ENTERED: 08/07/25-1133 SP TYPE: Surgical OTHR DR: Sherman Crystal MD ORDERED: Gross Micro L3 Diagnosis Soft tissue, right back, excision: Mature lobulated adipose tissue consistent with lipoma; no atypia identified. Clinical History Benign lipomatous neoplasm of skin Microscopic Description Microscopic sections reviewed. Material Received Right back lipoma Gross Description Received in formalin is a 9.2 x 6.7 x 2.8 cm encapsulated portion of yellow lobulated adipose tissue. The specimen is inked and sectioned showing a fatty, homogeneous cut surface without evidence of hemorrhage or necrosis. Mass lesions are not identified grossly. Md Senior Research Scientist sections are submitted in cassettes 1-3. (RJD) IHC S/NG Disclaimer NOTE: Unless otherwise stated, all tissue is formalin-fixed and paraffin-embedded. Some or all of the immunohistochemical tests reported herein may have been developed and their performance characteristics determined by [facility]. They have not been cleared or approved by the U.S. Food and Drug Administration (FDA). However, the FDA has determined that such clearance or approval is not necessary. This laboratory is certified under the Clinical Laboratory Improvement Amendments of 1988 (CLIA) as qualified to perform high complexity clinical laboratory testing. Copies To: Sherman Crystal MD [address] [address] CONTINUED ON NEXT PAGE ----- ------- Name: Abi Jorgensen Age/Sex: 54/F : 1970 Unit#: [id number] Attend Dr: Diogo Springer MD Re08/07/25 Status: [facility] Location: [facility] Disch: ----- ------- SPEC : [id number] RECD: 08/07/25 STATUS: HARLAN ALCAZAR NUM: [id number] SANTIAGO: 08/07/25-[address] [facility] [address]: Diogo Springer MD ENTERED: 08/07/257695 SP TYPE: Surgical OTHR DR: Sherman Crystal MD ORDERED: Gross Micro L3 Copies To: (Continued) Diogo Springer MD [facility] General Surgeons [address] [place] [address] ----- ------- Signed (signature on file) Darwin Carpenter MD 08/09/25 1535 ----- ------- END OF REPORT Generic External Data Provider LAB CYTOLOGY ORDE RABLES Final Result Performing Organization Address [facility] de Phone Number [facility] [address] [place] [phone] * HCG, Qualitative, Urine (08/07/2025 8:30 AM EDT) Pathologist [facility] Urine NEGATIVE NEGATIVE [facility] Comment:This test was develo ped to detect early . Falsenegative results may occur after the 5th - 7th week ofpregnancy when using this test method. If clinicallyindicated, consider a serum hCG. 08/07/2025 8:30 AM EDT 08/07/2025 8:37 AM EDT Generic External Data Provider LAB URINE ORDERAB LES Final Result Performing Organization Address [facility] de Phone Number [facility] [address] [place] [phone] * TSH W/Reflex to FT4 (05/23/2025 9:41 AM EDT) [facility] TSH reflex Free T4 2.29 0.32 - 4.0 uIU/mL [facility] Blood Venous blood specimen / Unknown 05/23/2025 9:41 AM EDT 05/23/2025 4:03 PM EDT Sherman Campos MD LAB BLOOD ORDERABL ES Final Result Performing Organization Address [facility] de Phone Number [facility] [address] [place] [phone] * (ABNORMAL) CBC auto differential (05/23/2025 9:41 AM EDT) White Blood Count 3.8(L) 4.8 - 10.8 X10*3/uL [facility] Red Blood Count 4.75 4.20 - 5.50 X10*6/uL [facility] Hemoglobin 12.1 12.0 - 16.0 g/dl [facility] Hematocrit 39.2 37.0 - 47.0 % [facility] Mean Corpuscular Volume 82.5 80.0 - 98.0 fL [facility] Mean Corpuscular Hemoglobin 25.5(L) 27.0 - 33.0 pg [facility] Mean Corpuscular HGB Conc 30.9(L) 31.0 - 35.0 g/dl [facility] Red Cell Distribution Width 14.3 11.0 - 16.0 % [facility] Platelet Count 302 160 - 400 X10*3/uL [facility] Mean Platelet Volume 11.8 9.4 - 12.3 fL [facility] Neutrophils Percent Auto 42.5(L) 45 - 73 % [facility] Imm Gran Pct Auto 0.3 0.0 - 0.4 % [facility] Lymphocytes Percent Auto 43.9(H) 20 - 40 % [facility] Monocytes Percent Auto 9.8 2 - 11 % [facility] Eosinophils Percent Auto 2.4 0 - 4 % [facility] Basophils Percent Auto 1.1 0 - 2 % [facility] NRBC Pct Auto 0.0 0.0 - 0.2 /100WBC [facility] Neutrophils Absolute Auto 1.6(L) 2.0 - 8.3 x10*3/uL [facility] Imm Gran Abs Auto 0.01 0.00 - 0.03 X10*3/uL [facility] Lymphocytes Absolute Auto 1.7 1.2 - 4.9 X10*3/uL [facility] Monocytes Absolute Auto 0.4 0.1 - 1.2 X10*3/uL [facility] Eosinophils Absolute Auto 0.1 0.0 - 0.4 X10*3/uL [facility] Basophils Absolute Auto 0.0 0.0 - 0.2 X10*3/uL [facility] NRBC Abs Auto 0.000 0.0 - 0.012 X10*3/uL [facility] Blood Venous blood specimen / Unknown 05/23/2025 9:41 AM EDT 05/23/2025 4:03 PM EDT Sherman Campos MD LAB BLOOD ORDERABL ES Final Result Performing Organization Address [facility]/ZIP Co de Phone Number [facility] [address] [place] [phone] * Hepatitis C Antibody with Reflex to HCV, RNA, Quantitative, Real-Time PCR (05/23/2025 9:41 AM EDT) Hepatitis C Antibody Nonreactive Nonreactive [facility] Comment:Antibodies to HCV no t detected; does not exclude early acuteHCV infection. Blood Venous blood specimen / Unknown 05/23/2025 9:41 AM EDT 05/23/2025 4:03 PM EDT Sherman Campos MD LAB BLOOD ORDERABL ES Final Result Performing Organization Address [facility] Co de Phone Number [facility] [address] [place] [phone] * HIV-1/2 Antigen and Antibodies, Fourth Generation, with Reflexes (05/23/2025 9:41 AM EDT) HIV AB/AG Nonreactive Nonreactive [facility] Comment:HIV-1 p24 Ag and/or HIV-1/HIV-2 Ab not detected.A test result that is nonreactive does not exclude thepossibility of exposure to or infection with HIV-1 and/orHIV-2. Nonreactive results in this assay for individualswith prior exposure to HIV-1 and/or HIV-2 may be due toantigen and antibody levels that are below the limit ofdetection of this assay.The Thermodynamic Process Control [employer] HIV Ag/Ab Combo assay result andsupplemental assay results should be interpreted inconjunction with the patient's clinical presentation,history and other laboratory results. If the results areinconsistent with clinical evidence, additional testing issuggested to confirm the result. Blood Venous blood specimen / Unknown 05/23/2025 9:41 AM EDT 05/23/2025 4:03 PM EDT Sherman Campos MD LAB BLOOD ORDERABL ES Final Result Performing Organization Address [facility] Co de Phone Number [facility] [address] [place] [phone] * Hemoglobin A1c (05/23/2025 9:41 AM EDT) Hemoglobin A1c 6.0 <6.0 % [facility] Comment:Hemoglobin A1C Refer ence Range Adults: 4.8 - 6.0 % Non diabetic: < 6.0 % Goal: < 7.0 %Additional Action Suggested: > 8.0 %Note: Hemoglobin A1c results are invalid for patients with abnormal amounts of HbF. Blood transfusions may impact the HbA1c concentration in the patient sample. Estimated Average Glucose 126 mg/dL [facility] Comment:eAG = Estimated ave rage glucose which is %A1C expressed asaverage glucose, using the formula of the I1G-JsercijCwmxkls Glucose study (ADAG), Diabetes Care, Vol.31,#8,Jun. 2007 Blood Venous blood specimen / Unknown 05/23/2025 9:41 AM EDT 05/23/2025 4:03 PM EDT us Sherman Campos MD LAB BLOOD ORDERABL ES Final Result Performing Organization Address [facility] Co de Phone Number [facility] [address] [place] [phone] * (ABNORMAL) Lipid Panel, Standard (05/23/2025 9:41 AM EDT) Triglycerides 114 <150 mg/dL [facility] Comment:Desirable Triglyceri de: less than 150 mg/dLBorderline High Triglyceride 150-199 mg/dLHigh Triglyceride: 200-499 mg/dLVery High Triglyceride: greater than or equal to 5OO mg/dL Cholesterol 234(H) <200 mg/dL [facility] Comment:Desirable Cholestero l: less than 200 mg/dLBorderline High Cholesterol: 200-239 mg/dLHigh Cholesterol: greater than 239 mg/dL LDL Cholesterol Calculated 161(H) <100 mg/dL [facility] Comment:Desirable LDL: less than 100 mg/dLNear Optimal/Above Optimal LDL: 110- 129 mg/dLBorderline High LDL: 130-159 mg/dLHigh LDL: 160-189 mg/dLVery High LDL: greater than or equal to 190 mg/dL HDL Cholesterol 51 >40 mg/dL [facility] Comment:Desirable HDL: great er than 40 mg/dL Note: This HDL assay may give artificially low results in patients with liver disease. Blood Venous blood specimen / Unknown 05/23/2025 9:41 AM EDT 05/23/2025 4:03 PM EDT Sherman Campos MD LAB BLOOD ORDERABL ES Final Result [facility] [address] [place] [phone] * (ABNORMAL) Comprehensive Metabolic Panel (05/23/2025 9:41 AM EDT) Pathologist [facility] Sodium 139 135 - 145 mmol/L [facility] Potassium 4.2 3.3 - 5.1 mmol/L [facility] Chloride 104 96 - 108 mmol/L [facility] Carbon Dioxide 28 22 - 29 mmol/L [facility] Anion Gap 11(L) 12 - 20 [facility] Urea Nitrogen (BUN) 17(H) 9 - 16 mg/dL [facility] Creatinine, Serum 0.85 0.5 - 1.4 mg/dL [facility] Estimated Glomerular Filt Rate >60 [facility] Comment:Chronic Kidney Disea se: Estimated GFR < 60 mL/min/[id number] Kidney Disease: Estimated GFR < 15 mL/min/1.73m2 Glucose 105 60 - 115 mg/dL [facility] Calcium 9.0 8.4 - 10.2 mg/dL [facility] Bilirubin, Total 0.2 0.0 - 1.0 mg/dL [facility] Aspartate Amino Transferase 31 5 - 31 U/L [facility] Alanine Aminotransferase 16 0 - 31 U/L [facility] Total Protein 7.0 6.5 - 8.0 g/dL [facility] Albumin Level 4.2 3.5 - 5.0 g/dL [facility] Alkaline Phosphatase 53 39 - 117 U/L [facility] Blood Venous blood specimen / Unknown 05/23/2025 9:41 AM EDT 05/23/2025 4:03 PM EDT Sherman Campos MD LAB BLOOD ORDERABL ES Final Result [facility] [address] [place] [phone] * Cologuard?? colon cancer screening (11/27/2024 9:48 AM EST) Cologuard Result Negative Negative 12/04/19 5:23 PM EST [employer] (CLIA #:[id number]) Comment: NEGATIVE TEST RESULT. A negative Cologuard [...] screened with both Cologuard and colonoscopy. (Derrick Bustillo, N Engl J Med 2014;370(14):0050-2144) The normal value (reference range) for this assay is negative. COLOGUARD RE-SCREENING RECOMMENDATION: Periodic colorectal cancer screening is an important part of preventive healthcare for asymptomatic individuals at average risk for colorectal cancer. Following a negative Cologuard result, the [place] [employer] and U.S. Multi-Society Task Force screening guidelines recommend a Cologuard re-screening interval of 3 years. References: [place] [employer] Guideline for Colorectal Cancer Screening: https://www.cancer.org/cancer/tcwqd-oxueff-mtbjzs/biropmbqw-cezbmwyne-jedkinw/ac s-rec ommendations.html.; Petros DK, Arnold GARCIA, Jacob LeeK, Colorectal Cancer Screening: Recommendations for Physicians and Patients from the U.S. Multi-Society Task Force on Colorectal Cancer Screening , Am J Gastroenterology 2017; 112:6335-3551. TEST DESCRIPTION: Composite algorithmic analysis of stool [...] screened with both Cologuard and colonoscopy. (Derrick Bustillo, N Engl J Med 2014;370(14):5832-7602.) Cologuard may produce a false negative or false positive result (no colorectal cancer or precancerous polyp present at colonoscopy follow up). A negative Cologuard test result does not guarantee the absence of CRC or advanced adenoma (pre-cancer). The current Cologuard screening interval is every 3 years. ([place] [employer] and U.S. Multi-Society Task Force). Cologuard performance data in a 10,000 patient pivotal study using colonoscopy as the reference method can be accessed at the following location: www.Qzzr.Scoreoid/results. Additional description of the Cologuard test process, warnings and precautions can be found at www.cologuard.com. Stool specimen (specimen) 11/27/2024 9:48 AM EST 11/28/2024 11:01 AM EST us Sherman Campos MD LAB MOLECULAR DIAG NOSTICS ORDERABLES Final Result [employer] (CLIA #:[id number]) [place] [address] [place] [address], from Last 3 Months or Most Recently Relevant to Health Maintenance Insurance [facility] [place] [id number] Care Teams Aboriginal Education Teacher Relationship Specialty Start Date End Date Sherman Crystal MD [address] [place] [address] PCP - General Internal Medicine 11/02/24
--- OUTSIDE RECORDS SUMMARY | 2025-08-20 17:52 | XMS_ITS | Encounter Summary ---
Author Organization [employer] Address [address] [facility] [address] [address] Care Team Providers Care Weed Sprayer Name Role Phone Sherman Crystal MD Primary Care Prov ider Reason for Visit * Reason Onset Date Comments New patient 10/18/2024 Encounter Details Date Type Department Care Team (Late st Contact Info) Description 10/18/2024 Telephone [facility] [address] [place] [address] Sherman Crystal MD [address] [place] [address] [phone] New patient Social History Tobacco Use Types [...] documented in this encounter Plan of Treatment Not on file documented as of this encounter Visit Diagnoses Not on filedocumented in this encounter Care Teams Weed Sprayer Relationship Specialty Start Date End Date Sherman Crystal MD [address] [place] [phone] PCP - General Internal Medicine 11/02/24 documented as of this encounter
--- OUTSIDE RECORDS SUMMARY | 2025-08-20 17:52 | XMS_ITS | Encounter Summary ---
Author Organization [employer] Address [address] [facility] [address] [place] [address] Care Team Providers Care Check Services Clerk Name Role Phone Sherman Crystal MD Primary Care Prov ider Reason for Visit * Reason Onset Date Comments Nurse Triage 03/26/2025 Encounter Details Date Type Department Care Team ([facility] st Contact Info) Description 03/26/2025 Telephone [facility] [address] [place] [address] Sherman Crystal MD [address] [place] [phone] Nurse Triage Social History Tobacco Use Types [...] 11:47 AM EDT [place]riage [place] [id number] Pt reports a tennis ball sized lump [...] documented as of this encounter Care Teams Check Services Clerk Relationship Specialty Start Date End Date Sherman Crystal MD [address] [place] [phone] PCP - General Internal Medicine 11/02/24 documented as of this encounter
== END 2025-08-20 15:39 | disposition home or self-care (01) ==
LOC: HO.HGS 15:27
PROVIDERS: PCP Internal Medicine; Visit Provider Surgery
DX: D17.1 Benign lipomatous neoplasm of skin and subcutaneous tissue of trunk (principal)
CPT/HCPCS: 99024

== ENCOUNTER → 2025-08-20 15:27 | Outpatient (BNVA) | payer OTHER, SELFPAY | PROVIDERS: PCP Internal Medicine; Visit Provider Surgery | DX: Z09 Encounter for follow-up examination after completed treatment for conditions other than malignant neoplasm (principal); Z98.890 Other specified postprocedural states; Z87.2 Personal history of diseases of the skin and subcutaneous tissue | CPT/HCPCS: 99212 ==